=== PATIENT | male | born 1965 | race American Indian/Alaskan Native ===

== ENCOUNTER 2017-03-21 11:01 | Outpatient (CLI) | payer BC ==
[2017-03-21 11:25] LABS: BASOPHILS % (AUTO) 0.8 %; EOSINOPHILS % (AUTO) 0.7 %; HCT - HEMATOCRIT 60.1 % (42.0-52.0); HGB - HEMOGLOBIN 20.2 g/dL (14.0-18.0); LYMPHOCYTES % (AUTO) 16.8 %; MEAN CORPUSCULAR HEMOGLOBIN 30.3 pg (27.0-31.0); MEAN CORPUSCULAR HGB CONC 33.5 g/dL (32.0-36.0); MEAN CORPUSCULAR VOLUME 90.4 fL (80.0-94.0); MEAN PLATELET VOLUME 8.6 fL (7.4-11.4); MONOCYTES # (AUTO) 0.5 10^3/uL (0.0-1.0); MONOCYTES % (AUTO) 8.2 %; NEUTROPHILS # (AUTO) 4.4 10^3/uL (1.5-6.6); NEUTROPHILS % (AUTO) 73.5 %; NUCLEATED RED BLOOD CELLS AUTO 0.3 /100WBC; RED BLOOD COUNT 6.65 10^6/uL (4.70-6.10); RED CELL DISTRIBUTION WIDTH 14.5 % (12.0-15.0); UNCORRECTED WHITE BLOOD COUNT 6.1 x10^3/uL; WHITE BLOOD COUNT 6.1 x10^3/uL (4.8-10.8)
[2017-03-21 11:48] LABS: ALBUMIN/GLOBULIN RATIO 1.4 (1.0-2.2); BILIRUBIN,TOTAL 0.7 mg/dL (0.2-1.0); CALCIUM 9.1 mg/dL (8.5-10.3); CREATININE 1.1 mg/dL (0.6-1.2); POTASSIUM 4.7 mmol/L (3.5-5.0); TOTAL PROTEIN 7.9 g/dL (6.7-8.2)
== END 2017-03-21 11:02 | disposition home or self-care (01) ==
LOC: LAB 11:01
PROVIDERS: ATTEND Obstetrics & Gynecology
DX: Z01.818 Encounter for other preprocedural examination (principal); F64.1 Dual role transvestism
CPT/HCPCS: 36415; 80053; 85025; 86850; 86900; 86901

== ENCOUNTER 2017-03-23 06:15 | Day surgery (SDC) | payer BC ==
--- NOTE | 2017-03-21 13:20 | PREOP HISTORY & PHYSICAL ---
DATE OF ADMISSION/SURGERY: 03/23/2017 IDENTIFICATION: This is a 51-year-old G0. HISTORY OF PRESENT ILLNESS: The patient presents today for his scheduled preoperative visit. The andra ent for a long time has desired removal of his uterus, ovaries, and fallopian tubes. The patient has had bilateral mastectomies and is currently identifying and living as a male. We had anticipated him to have surgery when I initially saw him in 2013, but unfortunately due to polycythemia and an elevat ed creatinine, there was a delay in getting these problems addressed. More recently he has needed to require shoulder surgery, which has postponed his surgery. Finally, now he is able to remove the fema le genital organs. In the past, he has noted that he has had pelvic pain and dysmenorrhea. He has bee n seen in the [facility]'s hematologic/oncology clinic by Daniel Burks MD, PhD, and the polycythe jerry is from his testosterone. The patient has had some therapeutic phlebotomies, which has reduced hi s HandH. The patient also saw Dr. Shannan Howard, urology, and has had cystoscopy. He is cleared from Dr. Howard's point of view with respect to urology. The patient has been seeing Last Bush DO at [facility] in [place] with respect to his hormone therapy. Apparently Dr. Patty dela cruz has decided to move to [place] and now the patient is being taken care of by Dr. Charlie hensley, DIANA, also at [facility]. In any event, the patient is excited to have surgery done so he can later proceed to sexual reassignm ent surgery. The patient is doing well and he denies any nausea, vomiting, fevers, chills, abdominal pain. The patient presents today with his mother, Mendy. PAST MEDICAL HISTORY 1. Migraine headaches. 2. Pelvic pain. 3. Hypertension. 4. Hypogonadism. 5. Dermatitis. PAST SURGICAL HISTORY 1. In 2011, bilateral mastectomy in [place], [place]. 2. In 2006, right rotator cuff repair. 3. In 2004, [facility] in [place], [place]. ALLERGIES: NO KNOWN DRUG ALLERGIES. MEDICATIONS 1. Testosterone 0.1 mg IM q.10 days. This is being currently held in preparation for surgery. 2. Lisinopril 20 mg 1 tab p.o. daily. 3. Toprol-XL 25 mg. 4. Mobic 7.5 mg 1 tab p.o. daily. SOCIAL HISTORY: The patient is a former smoker, but currently does not smoke. He also denies any alco hol or illicit drug use. 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 His mom is Mendy, and he is very close to his mom. Mom currently lives in [facility], apparently [place]. He is currently moving in with his mom for his post operative recovery. His sexual reassignment was started in 2009. PAST OBSTETRICAL HISTORY: Nulligravida. PAST GYNECOLOGICAL HISTORY: He denies any abnormal Pap smears or sexually transmitted diseases. He feliz s not had menses for the last 10 years. FAMILY HISTORY 1. Diabetes. 2. Paternal grandmother had uterine carcinoma. REVIEW OF SYSTEMS: Negative, unless otherwise stated. OBJECTIVE VITAL SIGNS: Height is 67 inches, weight is 129 pounds, BMI is 30.1. Blood pressure 132/82. GENERAL: The patient is a well-developed, well-nourished male who appears to be his s tated age. He is not well versed in medical knowledge. HEENT: He does have a scraggly baldwin, otherwise within normal limits. CARDIOVASCULAR: Rate is regular. No murmurs or rubs. PULMONARY: Lungs are clear to auscultation bilaterally. ABDOMEN: Soft, nontender. No peritoneal signs. STUDIES 1. 09/05/2014, at [facility], show uterus that is anteverted measuring 8.2 x 5.3 x 4.0 cm. There is a right lateral subserosal and posterior body leiomyomata measuring 1.3 and 1.1 cm, respectively. Normal ovaries. No free fluid. 2. 09/19/2015, labs show white count of 5.1, HandH of 14.7 and 45.3, platelets 267. 3. 01/08/2016, negative Pap smear with negative high risk HPV screening. ASSESSMENT 1. A 51-year-old G0. 2. Transgender and desires removal of female reproductive organs. 3. Resolved polycythemia secondary to testosterone supplementation. 4. Cleared by Gui Valenzuela MD, urology at [facility], for hematuria and elevated creatinine. PLAN 1. We will proceed to a scheduled total laparoscopic hysterectomy, bilateral salpingo-oophorectomy, a nd cystoscopy on 03/23/2017. 2. Discussed with him the risks, benefits, alternatives, indications, and expectations of surgery. Liban hamilton of his questions were answered to his satisfaction. Consent forms have been signed. 3. He is to get preop labs today for CBC, type and screen, as well as a comprehensive panel. 4. He is to take Tylenol 1 g prior to coming to the hospital, and he will receive Celebrex 200 mg in the preoperative holding area. 5. Anticipate him going home later the day after surgery. 6. Prescriptions for him have been given to him for postoperative care including oxycodone, ibuprofen , Colace and Tylenol. 7. He will return to me in 2 weeks for routine postop visit. JOB #: [id number] EXT JOB #:[id number]
[2017-03-23] MEDS ORDERED: CELECOXIB 100 MG CAPSULE PO ONE (06:32)
[2017-03-23] MEDS ORDERED: ENOXAPARIN 40 MG/0.4 ML SYRINGE SUBQ ONE (06:32)
[2017-03-23] MEDS ORDERED: ceFAZolin 2 GM/50 ML 50 ML IV ONE (06:32)
[2017-03-23] MEDS ORDERED: LACTATED RINGERS 1,000 ML IV ONE (06:34)
[2017-03-23] MEDS ORDERED: MIDAZOLAM 2 MG/2 ML VIAL ONE (08:02)
[2017-03-23] MEDS ORDERED: BUPIVACAINE 0.25%-EPI 1:200000 PF 30 ML VIAL SUBQ ONE ×3 (10:39→13:14)
[2017-03-23] MEDS ORDERED: METOCLOPRAMIDE 10 MG/2 ML VIAL IVP ONE (10:56)
[2017-03-23] MEDS ORDERED: PROPOFOL 200 MG/20 ML VIAL IVP ONE (10:56)
[2017-03-23] MEDS ORDERED: ROCURONIUM 50 MG/5 ML VIAL IVP ONE (10:56)
[2017-03-23] MEDS ORDERED: DEXAMETHASONE 4 MG/ML VIAL IVP ONE (10:56)
[2017-03-23] MEDS ORDERED: NEOSTIGMINE 1 MG/1 ML 10 ML MDV IVP ONE (10:56)
[2017-03-23] MEDS ORDERED: ePHEDrine 50 MG/ML AMP IVP ONE (10:56)
[2017-03-23] MEDS ORDERED: PHENYLEPHRINE 50 MG/5 ML VIAL IV ONE (10:56)
[2017-03-23] MEDS ORDERED: ONDANSETRON 4 MG/2 ML VIAL IVP ONE (10:56)
[2017-03-23] MEDS ORDERED: ACETAMINOPHEN 1,000 MG/100 ML VIAL IV ONE (10:56)
[2017-03-23] MEDS ORDERED: HYDROmorphone 1 MG/ML SYRINGE IVP ONE (10:56)
[2017-03-23] MEDS ORDERED: GLYCOPYRROLATE 1 MG/5 ML VIAL IVP ONE (10:56)
[2017-03-23] MEDS ORDERED: KETOROLAC 30 MG/ML VIAL IVP ONE (10:56)
[2017-03-23] MEDS ORDERED: MIDAZOLAM 2 MG/2 ML VIAL IVP ONE (10:56)
[2017-03-23] MEDS ORDERED: LIDOCAINE-MPF 2% 5 ML VIAL IM ONE (10:56)
--- NOTE | 2017-03-23 13:39 | OPERATIVE REPORT ---
Operative Report - General Procedure Date: 03/23/17 - Other Other Information/Narrative: Date of Operation: 03/23/2017 Surgeon: Anika Elaine DO FACOG Real Time Operator: Jarad Bob MD FACOG Anesthesiologist: Nancie Lopez MD Anesthesia: GET Pre-op Dx: 1. 51 yo G0 2. Transgender 3. Desired hysterectomy and bilateral salpingo-oophorectomy Post-op: 1. 51 yo G0 2. Transgender 3. Desired hysterectomy and bilateral salpingo-oophorectomy Procedures: 1. Total laparoscopic hysterectomy 2. Bilateral salpingo-oophorectomy 3. Cystoscopy Findings: 1. Leiomyomatamous uterus 2. Normal ovaries and fallopian tubes 3. Normal bladder and ureteral jets were seen at the conclusion of the case Specimens: Uterus, fallopian tubes and ovaries, en bloc Drains: None EBL: 300 mL Complications: None Dictation #: [id number]
[2017-03-23] MEDS ORDERED: ONDANSETRON 4 MG/2 ML VIAL ONE (13:44)
[2017-03-23] MEDS: fentaNYL 100 MCG/2 ML VIAL ONE ×3 (13:56→14:02)
[2017-03-23] MEDS ORDERED: oxyCODONE 5 MG TABLET ONE (14:46)
[2017-03-23 15:40] VITALS: BP 139/68
--- NOTE | 2017-03-24 06:50 | OPERATIVE REPORT ---
DATE OF SURGERY: 03/23/2017 00:00:00 SURGEON: Anika Elaine DO. IRON MELTER: Jarad Bob MD. ANESTHESIOLOGIST: Nancie Lopez MD. ANESTHESIA: General endotracheal tube. PREOPERATIVE DIAGNOSES 1. A 51-year-old G0. 2. Transgender. 3. Desires hysterectomy and bilateral salpingo-oophorectomy. POSTOPERATIVE DIAGNOSES 1. A 51-year-old G0. 2. Transgender. 3. Desires hysterectomy and bilateral salpingo-oophorectomy. PROCEDURES 1. Total laparoscopic hysterectomy. 2. Bilateral salpingo-oophorectomy. 3. Cystoscopy. FINDINGS 1. Leiomyomatosis uterus. 2. Normal ovaries and fallopian tubes. 3. Normal bladder and ureteral jets seen at the conclusion of the case. SPECIMENS: Uterus, fallopian tubes, and ovaries en bloc. DRAINS: None. ESTIMATED BLOOD LOSS: 300 mL. COMPLICATIONS: None. BRIEF HISTORY: This is a patient of [facility] with whom I have been seeing for quite a while. There have been some difficulties for the patient in order to get consultations performed, as well as needing to have orthopedic surgery. The patient has had a history of menorrhagia, but the patient now has went through menopause. The patient has undergone transformation from female to male and has had a bilateral mastectomy and is on testosterone therapy. The patient would like to have sexual reassignment surgery in the future after hysterectomy has been performed. I discussed with the patient the risks, benefits, terms, indications, expectations of a total laparoscopic hysterectomy, bilateral salpingo-oophorectomy, and cystoscopy. Included in the risks were risk of infection, hemorrhage, and damage to surrounding organs, which may include, but is not limited to inadvertant laceration, cauterization or ligation of adjacent intestines, ureters, and bladder. Furthermore, the patient's workup showed a significant polycythemia that had been worked up Heme/Onc and effectively treated with weekly phlebotomy. The patient has not had any phlebotomy in the recent past. He has a hemoglobin of 20.2 and an hematocrit of about 60. I told the patient that with this polycythemia, this is a hypercoagulable condition, in which he is at increased risk of having blood clots. Significance of this is stroke, pulmonary embolism, and myocardial infarction. The patient still wanted to proceed with this surgery and I did give him Lovenox 2 hours prior to surgery in order to reduce the risk. I also spoke to Dr. Nancie Lopez about the patient's case and she decided to increase the patient's fluids in order to help decrease the patient' s hemoglobin. After all of the patient's questions were answered to his satisfaction, he verbalized his desire to proceed with surgery. Consent forms have been signed. OPERATION IN DETAIL: The patient was identified, consented, taken to the operating room where IV access was already in place. The patient did arrive 2 hours earlier and received Lovenox 40 mg subcu x1 at 6:51 this morning. We waited at least 2 hours before starting surgery. Sequential compression devices were placed on the patient's lower extremities and turned on. The patient was then given satisfactory general endotracheal anesthesia per Dr. Lopez. The patient was then prepped and draped in the normal sterile fashion in the lithotomy position using the yellow-fin stirrups. A Yanez catheter was placed in his bladder. Ancef 2 grams were given for postoperative prophylaxis. A timeout was performed, which correctly identified the patient, site of the procedure, and the procedures themselves. A medium V-care uterine manipulator and colpotimizer were placed on the cervix. Three laparoscopic port sites, all 5 mm in length, were first identified. They were in the subumbilical fold, right lower quadrant, and left lower quadrant. The lower quadrant sites were approximately 2 fingerbreadths medial and then superior to the respected anterior and superior iliac fold. All sites were injected with 0.25% Marcaine with epinephrine, approximately 5 mL each. A 0 degree laparoscopic port was then placed in the abdomen with the help of the Visi-Port trocar. There was no trauma to intraabdominal organs. Next, 2 other laparoscopic port sites were placed in the abdomen under direct visualization of the camera. The camera was changed to a 30 degree. CO2 gas was satisfactorily insufflated and inspection of the pelvis and abdomen was performed. It revealed slightly enlarged uterus consistent with parts of leiomyomata. The ovaries and fallopian tubes were both within normal limits. The appendix was seen and within normal limits. The liver, however, appeared to be enlarged more so than normal. It did have a beefy red edematous appearance to it. It was hemostatically stable and no masses were seen. I would guess that the liver was hypertrophied secondary to chronic testosterone use. There were some adhesions on the left adnexa and the sidewall. A small incision was made in the broad ligament and the left adnexa was freed. The left adnexa was first clamped, cauterized, and incised using LigaSure. This incision was carried inferiorly in the left aspect of the round ligament and next the round ligament. This incision was then carried to the anterior leaf of the broad ligament inferiorly and then medially in order to create a bladder flap. The left uterine artery was identified, clamped, and cauterized. The incision was held off until all major vessel contributions to the uterus had been stopped. The bladder flap was then further developed using dull dissection, as well as cautery. Attention was then turned towards the right aspect of the uterus. In a similar fashion, the right aspect of the uterus was then identified. The right adnexa was then clamped, cauterized, and excised from the right aspect of the pelvis including the infundibulum pelvic ligament and the fallopian tube. The round ligament was then clamped, cauterized, and incised using LigaSure. In a similar fashion, the broad ligament was then incised laterally. An incision was made in the anterior leaf in order to further develop the bladder flap that had already been started on the left aspect. The right uterine artery was then identified and then clamped, cauterized, and incised. The bladder flap was again further dissected out bluntly and with electrocautery. Some bleeding was noted in the left aspect of the uterus. A fourth 5 mm laparoscopic port site was placed at Mejia's point to help with visualization. Hemostatis was achieved after the left uterine artery was fully cauterized. The V-Care uterine manipulator and colpotomizer was pushed superiorly and we could palpate the superior cup laparoscopically. An incision was made in the vagina at the location of the cervix and vagina. The cup was then visualized and then with a harmonic scalpel, a circumferential incision was made on top of the cup. The cervix was then liberated from the pelvis. The uterus, fallopian tubes, and ovaries were then removed en bloc from the pelvis. The vaginal cuff was then closed with a running stitch of V-Loc 2-0 suture. Hemostasis was noted. Some bleeding was noted on the right anterior portion of the peritoneum. Electrocautery was used in order to obtain hemostasis. Hemostasis was again noted. Cystoscopy was then performed. Using a 30 degree camera and cystoscopy set-up, LR was used to distend the bladder. Visualization of the bladder revealed that the bladder was intact and there were no areas of suture or active bleeding. Both ureteral orifices were identified and ureteral jets were seen from both orifices. At this point in time, this procedure had been completed. The cystoscopy instruments were then removed out of the bladder and a Yanez catheter was then used to drain the bladder. The Yanez was removed just prior to moving the patient to recovery. The 4 laparoscopic port sites were then removed and were closed in a subcuticular fashion. Dermabond was placed on top of all 4 port sites. All sponge, lap and needle counts were correct x 2 as per nurse report. The patient tolerated the procedure well and was taken back to the recovery room in stable condition. The patient will be discharged to home later today after postoperative criteria are met. In addition, the patient will be given instructions to use Lovenox 40 mg subcu x1 daily for the next days given his elevated hemoglobin and hematocrit. I anticipate seeing the patient in 2 weeks for routine postop followup. JOB #: [id number] EXT JOB #:[id number] BROWN
== END 2017-03-23 06:16 | disposition home or self-care (01) ==
LOC: SDS 06:15
PROVIDERS: ATTEND Obstetrics & Gynecology
PROC: 0UTC4ZZ Resection of Cervix, Percutaneous Endoscopic Approach (ICD-10-PCS; 2017-03-23)
PROC: 0UT24ZZ Resection of Bilateral Ovaries, Percutaneous Endoscopic Approach (ICD-10-PCS; 2017-03-23)
PROC: 0UT74ZZ Resection of Bilateral Fallopian Tubes, Percutaneous Endoscopic Approach (ICD-10-PCS; 2017-03-23)
PROC: 0TJB8ZZ Inspection of Bladder, Via Natural or Artificial Opening Endoscopic (ICD-10-PCS; 2017-03-23)
PROC: 0UT94ZZ Resection of Uterus, Percutaneous Endoscopic Approach (ICD-10-PCS; principal; 2017-03-23 09:30)
DX: F64.1 Dual role transvestism (principal); D25.9 Leiomyoma of uterus, unspecified; N73.6 Female pelvic peritoneal adhesions (postinfective); D75.1 Secondary polycythemia; I10 Essential (primary) hypertension; Z87.891 Personal history of nicotine dependence; Z83.3 Family history of diabetes mellitus; Z80.49 Family history of malignant neoplasm of other genital organs; Z79.82 Long term (current) use of aspirin
CPT/HCPCS: 52000; 58571; A9270; J0131; J0690; J1170; J1650; J7120; 88307

== ENCOUNTER 2017-04-06 11:11 | Emergency (ER) | payer BC ==
[2017-04-06 12:21] LABS: BASOPHILS # (AUTO) 0.1 10^3/uL (0.0-0.1); BASOPHILS % (AUTO) 0.6 %; EOSINOPHILS # (AUTO) 0.1 10^3/uL (0.0-0.7); EOSINOPHILS % (AUTO) 0.5 %; HCT - HEMATOCRIT 39.6 % (42.0-52.0); LYMPHOCYTES # (AUTO) 1.5 10^3/uL (1.5-3.5); LYMPHOCYTES % (AUTO) 10.1 %; MEAN CORPUSCULAR HGB CONC 32.8 g/dL (32.0-36.0); MEAN CORPUSCULAR VOLUME 91.3 fL (80.0-94.0); MEAN PLATELET VOLUME 7.5 fL (7.4-11.4); MONOCYTES # (AUTO) 0.9 10^3/uL (0.0-1.0); MONOCYTES % (AUTO) 6.3 %; NEUTROPHILS # (AUTO) 12.1 10^3/uL (1.5-6.6); NEUTROPHILS % (AUTO) 82.5 %; NUCLEATED RED BLOOD CELLS AUTO 0.1 /100WBC; RED BLOOD COUNT 4.34 10^6/uL (4.70-6.10); UNCORRECTED WHITE BLOOD COUNT 14.6 x10^3/uL; WHITE BLOOD COUNT 14.6 x10^3/uL (4.8-10.8)
--- NOTE | 2017-04-06 12:25 | ED Physician Documentation ---
History of Present Illness - Stated complaint Stated Complaint: WEIGHT LOSS/INCREASED BP - Chief complaint Chief Complaint: Abd Pain - Additonal information Additional information: hx from pt and EMR 51 transgender F->M s/p hyst 03/24 03/26 returned to OR emergently for hemoperitoneum and had a perforated colon and now has a colostomy was dced 04/01 was OK 04/02 and 04/03 04/04 developed nausea sweats poor PO intake 04/05 worse and had NV, still having liquid output into colostomy bag, some SOA jenna with exertion, discomfort with urination today had blood work ordered by surgeon Dr Patten and it was reportedly abnormal and pt states he was told to come to the ER and have Dr Patten paged to come see him when he arrived Review of Systems Constitutional: reports: Chills, Sweats Throat: denies: Sore throat Cardiac: denies: Chest pain / pressure Respiratory: reports: Dyspnea. denies: Cough GI: reports: Abdominal Pain (improving), Nausea, Vomiting. denies: Diarrhea : reports: Dysuria Endocrine: denies: Easy bruising / bleeding Immunocompromised: denies: Immunocompromised PD PAST MEDICAL HISTORY - Past Medical History Cardiovascular: Hypertension, Arrhythmia Respiratory: None Endocrine/Autoimmune: None GI: Other : None HEENT: Chronic vision loss, Glaucoma Psych: None Musculoskeletal: Other Derm: Other - Past Surgical History Past Surgical History: Yes General: Bowel surgery, Colonoscopy, Other Ortho: Rotator cuff repair, Other /RAG SHREDDER: Hysterectomy, Oophrectomy, Mastectomy - Present Medications Home Medications: Ambulatory Orders Medication Instructions Recorded Confirmed Aspirin [Aspir 81] 81 mg PO DAILY 07/28/15 04/06/17 Latanoprost 1 drops EACHEYE DAILY 03/29/17 04/06/17 Latanoprost 0.005% Ophth Drops 1 drops LEFTEYE QPM bottle 04/01/17 04/06/17 [Xalatan Ophth Drops] oxyCODONE/ACET 5/325 [Percocet 5 1 tab PO Q3HR PRN 04/04/17 04/06/17 mg/325 mg] Amox/Clav 875/125 [Augmentin] 1 each PO Q12H #13 tablet 04/06/17 - Allergies Allergies/Adverse Reactions: Allergies Allergy/AdvReac Type Severity Reaction Status Date / Time No Known Drug Allergies Allergy Verified 04/01/15 16:13 - Social History Does the pt smoke?: Yes Smoking Status: Former smoker Does the pt drink ETOH?: No Does the pt have substance abuse?: No - Immunizations Immunizations are current?: Yes - POLST Patient has POLST: No PD ED PE NORMAL - Vitals Vital signs reviewed: Yes - Neck Neck: Supple, no meningeal sign - Cardiac Cardiac: RRR - Respiratory Respiratory: No respiratory distress, Clear bilaterally - Abdomen Abdomen: Other (colostomy bag with clear orange liquid no solid stool, midline lower abd insison stapled but draining seroud fluid and with slight surrounding erythema, bruising to left side of abd, mild TTP but no rebound or guaridng) - Back Back: Other (no ecchymosis) - Extremities Extremities: No deformity, No edema, No calf tenderness / cord - Neuro Neuro: Alert and oriented X 3 Results - Vitals Vitals: Vital Signs - 24 hr 04/06/17 11:18 Temperature 36.7 C Heart Rate 85 Respiratory 16 Rate Blood Pressure 114/70 O2 Saturation 96 Oxygen O2 Source Room air - Labs Labs: Laboratory Tests 04/06/17 04/06/17 04/06/17 11:58 11:58 13:13 WBC 14.6 H RBC 4.34 L Hgb 13.0 L Hct 39.6 L MCV 91.3 MCH 30.0 MCHC 32.8 RDW 16.0 H Plt Count 625 H MPV 7.5 Neut # 12.1 H Lymph # 1.5 [place] # 0.9 Eos # 0.1 Baso # 0.1 Absolute Nucleated RBC 0.01 Nucleated RBCs 0.1 Sodium 134 L Potassium 4.6 Chloride 101 Carbon Dioxide 24 Anion Gap 9.0 BUN 24 H Creatinine 1.0 Estimated GFR (MDRD) 78 L Glucose 114 H Lactic Acid Calcium 8.8 Total Bilirubin 0.7 AST 33 ALT 20 Alkaline Phosphatase 57 Total Protein 7.3 Albumin 3.4 Globulin 3.9 Albumin/Globulin Ratio 0.9 L Lipase 88 H Urine Color Urine Clarity Urine pH Ur Specific [place] Urine Protein Urine Glucose (UA) Urine Ketones Urine Occult Blood Urine Nitrite Urine Bilirubin Urine Urobilinogen Ur Leukocyte Esterase Ur Microscopic Review Urine Culture Comments Blood Type O POSITIVE Antibody Screen NEGATIVE 04/06/17 04/06/17 13:13 15:07 WBC RBC Hgb Hct MCV MCH MCHC RDW Plt Count MPV Neut # Lymph # [place] # Eos # Baso # Absolute Nucleated RBC Nucleated RBCs Sodium Potassium Chloride Carbon Dioxide Anion Gap BUN Creatinine Estimated GFR (MDRD) Glucose Lactic Acid 1.1 Calcium Total Bilirubin AST ALT Alkaline Phosphatase Total Protein Albumin Globulin Albumin/Globulin Ratio Lipase Urine Color YELLOW Urine Clarity CLEAR Urine pH 5.5 Ur Specific [place] 1.010 Urine Protein NEGATIVE Urine Glucose (UA) NEGATIVE Urine Ketones NEGATIVE Urine Occult Blood LARGE H Urine Nitrite NEGATIVE Urine Bilirubin NEGATIVE Urine Urobilinogen 0.2 (NORMAL) Ur Leukocyte Esterase NEGATIVE Ur Microscopic Review INDICATED Urine Culture Comments Not Reportable Blood Type Antibody Screen - Rads (name of study) CTPA Radiology: See rad report (no EP, chronic dec L lung volume) CT AP c IV con Radiology: See rad report (beneath and abd constantine focal subcut infammatory phlegmon with partial enhancing wall 3.6 X 2 X 4.2 cm possible early abscess ( Dr Patten open up), prior subcut emphysems now extends, no drainable abscess, prior intra-abdomina hemorrhage resolved, no pneumoperitoneum of FF, still extensive fat stranding can be post op inflamm changes) PD MEDICAL DECISION MAKING - ED course ED course: spoke to Dr Patten - pt was at wound clinic today and had low BP so Dr Patten req CBC and pt had elev WBC so she would like him to get a CT AP c IV con, pt is also quite SOA with any exterion s/p 2 abd surgeries and long inpt stay so will alos get CTPA pt seen by Dr Patten and she removed some constantine from the inflamed lower abd incision and rec pt can be dced on augmentin 875 BID X 7 days Departure - Departure Disposition: 01 Home, Self Care Clinical Impression: Post-operative infection Qualifiers: Encounter type: initial encounter Qualified Code(s): T81.4XXA - Infection following a procedure, initial encounter Condition: Good Follow-Up: NADER PATTEN MD [Provider Admit Priv/Credential] - Prescriptions: Amox/Clav 875/125 [Augmentin] 1 each PO Q12H #13 tablet Comments: There was no blood clot in your lungs or pneumonia The CT scan of your abdomen shows a collection of infection right under the constantine - Dr Patten has opened this up to drain and recommends you take augmentin twice a day for a week Recommend you take a probiotic or eat yogurt every day while on the antibiotics
[2017-04-06 12:36] LABS: ALBUMIN/GLOBULIN RATIO 0.9 (1.0-2.2); BILIRUBIN,TOTAL 0.7 mg/dL (0.2-1.0); CALCIUM 8.8 mg/dL (8.5-10.3); POTASSIUM 4.6 mmol/L (3.5-5.0); TOTAL PROTEIN 7.3 g/dL (6.7-8.2)
[2017-04-06] MEDS: SODIUM CHLORIDE 0.9% 1,000 ML IV ONE (12:40)
[2017-04-06] MEDS: IOPAMIDOL-300 100 ML VIAL IVP ONE (13:52)
[2017-04-06] MEDS: AMOX/CLAV 875 MG/125 MG TABLET PO STA (14:21)
[2017-04-06] MEDS ORDERED: AMOX/CLAV 875 MG/125 MG TABLET PO ONE (14:23)
--- NOTE | 2017-04-06 14:29 | CT Preliminary Report ---
Exam: CT Chest Angio (PE) IMPRESSION: 1. 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 2. Normal pulmonary CT angiogram. No pulmonary emboli. [facility] SITE ID: [id number]
--- NOTE | 2017-04-06 14:35 | CT Report ---
EXAM: CT ANGIOGRAM CHEST EXAM DATE: 04/06/2017 01:42 PM. CLINICAL HISTORY: Recent hysterectomy. Patient presents with abdominal pain and shortness of breath. COMPARISON: No prior chest CTA. CT abdomen and pelvis 03/25/2017. TECHNIQUE: Routine helical imaging was performed through the chest in the pulmonary arterial phase. I V Contrast: 100 cc Isovue-300. Reconstructions: Coronal 3-D MIP reconstructions. Sagittal and coronal . In accordance with CT protocol optimization, one or more of the following dose reduction techniques w ere utilized for this exam: automated exposure control, adjustment of mA and/or KV based on patient s ize, or use of iterative reconstructive technique. FINDINGS: Pulmonary Arteries: Diagnostic quality: Adequate through the segmental arteries. No evidence for acute or chronic pulmona ry emboli. RV/LV is within normal limits. There is no interventricular septal bowing. There is no reflux of cont rast material in the IVC. Lungs/Pleura: Persistent marked elevation left hemidiaphragm with small amount of atelectasis or scar ring left lung base. Right lung is clear. No effusion nor pneumothorax. Mediastinum: Normal. No cardiac enlargement or adenopathy. Thoracic Aorta: Unremarkable. Upper Abdomen: Unremarkable. Other: Small amount of postprocedural superficial air left upper quadrant abdominal wall. IMPRESSION: 1. 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 2. Normal pulmonary CT angiogram. No pulmonary emboli. [facility] Referring Provider Line: [phone] SITE ID: [id number]
--- NOTE | 2017-04-06 14:46 | CT Preliminary Report ---
Exam: CT Abdomen/Pelvis W/ IMPRESSION: 1. Beneath the anterior abdominal sutures in the left paramedian location, there is a focal subcutane ous inflammatory phlegmon with partial enhancing wall measuring about 3.6 x 2 cm in cross-section and 4.2 cm in length, concerning for possible early formation of abscess. 2. Previous subcutaneous emphysema in the left lateral abdominal wall now extends to the labia majora bilaterally, not associated with drainable abscess. 3. Previous intra-abdominal hemorrhage is no longer present. No intra-abdominal abnormal fluid collec tion. No pneumoperitoneum. 4. There is still quite extensive fat stranding in the mesentery and peritoneum, can be due to postsu rgical and postinflammatory changes. [facility] SITE ID: [id number]
--- NOTE | 2017-04-06 14:49 | CT Report ---
EXAM: CT ABDOMEN AND PELVIS WITH CONTRAST EXAM DATE: 04/06/2017 01:43 PM. CLINICAL HISTORY: Post op pain and elevated WBC. COMPARISONS: CT ABDOMEN AND PELVIS WITH CONTRAST 03/25/2017. TECHNIQUE: Routine helical CT imaging was performed through the abdomen and pelvis. IV contrast: 100 cc Isovue-300. Enteric contrast: No. Reconstructions: Coronal and sagittal. In accordance with CT protocol optimization, one or more of the following dose reduction techniques w ere utilized for this exam: automated exposure control, adjustment of mA and/or KV based on patient s ize, or use of iterative reconstructive technique. FINDINGS: Lung Bases: Elevated left diaphragm. No consolidation or pleural effusion. Liver: Normal. No masses. Gallbladder/Bile Ducts: Unremarkable. Spleen: Normal. Pancreas: Normal. Adrenal Glands: Normal. Kidneys: Normal. No masses or hydronephrosis. Peritoneal Cavity/Bowel: Previous intra-abdominal hemorrhage is no longer present. Interval right ent erostomy. Anastomotic constantine in the sigmoid colon. There is still quite extensive fat stranding in t he mesentery and peritoneum, can be due to postsurgical and postinflammatory changes. No intra-abdomi nal abnormal fluid collection. No pneumoperitoneum. Pelvic Organs: Normal. The bladder and visualized pelvic organs are within normal limits. Vasculature: No aneurysms or other significant abnormality. Bones: No significant abnormality. Other: Previous subcutaneous emphysema in the left abdominal wall now extends to the labia majora rowan aterally. Beneath the anterior abdominal sutures in the left paramedian location, there is a focal coleman bcutaneous inflammatory phlegmon with partial enhancing wall measuring about 3.6 x 2 cm in cross-sect ion and 4.2 cm in length, concerning for possible early formation of abscess. IMPRESSION: 1. Beneath the anterior abdominal sutures in the left paramedian location, there is a focal subcutane ous inflammatory phlegmon with partial enhancing wall measuring about 3.6 x 2 cm in cross-section and 4.2 cm in length, concerning for possible early formation of abscess. 2. Previous subcutaneous emphysema in the left lateral abdominal wall now extends to the labia majora bilaterally, not associated with drainable abscess. 3. Previous intra-abdominal hemorrhage is no longer present. No intra-abdominal abnormal fluid collec tion. No pneumoperitoneum. 4. There is still quite extensive fat stranding in the mesentery and peritoneum, can be due to postsu rgical and postinflammatory changes. [facility] Referring Provider Line: [phone] SITE ID: [id number]
[2017-04-06 15:11] LABS: BILIRUBIN,URINE NEGATIVE (NEGATIVE); PH,URINE 5.5 PH (5.0-7.5)
[2017-04-06 15:12] LABS: UA w/ MICROSCOPIC CHARGE YES
[2017-04-06 15:30] LABS: UR CULTURE IF IND NOT INDICATED; WBC,URINE 0-3 /HPF (0-3)
[2017-04-06 15:57] VITALS: BP 120/75
--- NOTE | 2017-04-06 16:00 | CONSULTATION NOTE ---
DATE OF CONSULTATION: 04/06/2017 00:00:00 REASON FOR CONSULTATION: Night sweats and leukocytosis. HISTORY OF PRESENT ILLNESS: This is a 51-year-old who underwent an exploratory laparotomy and sigmoidectomy approximately 10 days ago for perforated sigmoid colon. He was discharged to home last Tuesday and had been doing pretty well, but then started complaining of night sweats. He denies any fevers or shaking chills. He was seen in the [facility] for management of his abdominal midline incision as this incision was left slightly open after surgery for concern for possible infection given the complexity of his surgery. Upon evaluation by the wound care nurse his blood pressure was noted to be slightly low and due to his complaints of night sweats I was called to assess the patient. On my assessment his vital signs were normal, his blood pressure was normal, his ostomy was functioning, his wound appeared normal. I did ask for a CBC to be drawn to ensure that there was no ensuing infection. This was noted to be slightly elevated. For this reason he was sent to the emergency department for a CT scan of the abdomen and pelvis. This was performed which demonstrated no evidence of intra-abdominal fluid collections, however, a subcutaneous fluid collection was noted at the umbilicus. His past medical history is significant for hypertension, migraines, dermatitis. Past surgical history: Bilateral mastectomy, rotator cuff repair recently, laparoscopic hysterectomy with bilateral oophorectomy and subsequent sigmoidectomy for bowel perforation. HOME MEDICATIONS: 1. Testosterone 0.1 mg IM every 10 days. 2. Lisinopril 20 mg 1 tablet daily. 3. Toprol XL 25 mg daily. 4. Mobic 7.5 mg daily. 5. Motrin 800 mg q. 8. 6. Roxicet. SOCIAL HISTORY; The patient is a transgender. He currently is living with a friend of the family. PHYSICAL EXAM: VITAL SIGNS: Temperature is 36.7, blood pressure 114/70, heart rate 85, respiratory rate 16, O2 saturation 96% on room air. GENERAL: He is awake, alert, oriented x3 in no acute distress. He is of average build. CARDIOVASCULAR: Regular rate and rhythm. CHEST: Clear to auscultation bilaterally with no rhonchi or wheezing. ABDOMEN: Soft, nondistended, mildly tender to palpation in the left lower quadrant. No guarding and no rigidity. Incision appears to be healing well with no signs of drainage or surrounding erythema. Stoma is pink and functioning. EXTREMITIES: Extremities are nonedematous. LAB VALUES: White blood cell count 14.6, hemoglobin 13, hematocrit 39.6, sodium 134, potassium 4.6, chloride 101, bicarb 24, BUN 24, creatinine 1.0, lactate 1.1. CT scan of the abdomen and pelvis reveals a soft tissue fluid collection and no intra-abdominal abscess. ASSESSMENT: This is a 51-year-old male status post sigmoid resection for a perforated bowel with a subsequent wound infection. PLAN: Two of the constantine in the upper portion of the wound were completely open to allow complete drainage of this fluid. The fluid was noted to be serous and not purulent. The wound was packed with packing and the patient was instructed to remove the packing tomorrow. He can be discharged home with a prescription with Augmentin for 1 week. He will be following up in my office on Tuesday for wound assessment. JOB #: [id number] [facility] JOB #:[id number] BROWN
== END 2017-04-06 15:40 | disposition home or self-care (01) ==
LOC: ED 11:11
DX: T81.4XXA Infection following a procedure, initial encounter (principal); Z93.3 Colostomy status; I10 Essential (primary) hypertension; I49.9 Cardiac arrhythmia, unspecified; Z79.82 Long term (current) use of aspirin; Z87.891 Personal history of nicotine dependence
CPT/HCPCS: 36415; 71275; 74177; 80053; 81001; 83605; 83690; 85025; 86850; 86900; 86901; 87040; 99283; 99284; A9270; Q9967; 81003; 87086

== ENCOUNTER 2017-06-07 09:09 | Outpatient (CLI) | payer OTHER, BC ==
--- NOTE | 2017-06-07 15:19 | MRI Report ---
EXAM: RIGHT SHOULDER MRI WITHOUT CONTRAST EXAM DATE: 06/07/2017 10:32 AM. CLINICAL HISTORY: Rotator cuff syndrome of right shoulder. Right shoulder pain. COMPARISON: None. TECHNIQUE: Multiplanar, multisequence T1-weighted and fluid-sensitive sequences of the shoulder witho ut contrast. Other: None. FINDINGS: Acromioclavicular Region: The acromion is small suggestive of a previous acromioplasty. The distal en d of the clavicle has been excised. There are postoperative artifacts adjacent to the acromion and th e acromioclavicular joint. The coracoacromial and coracoclavicular ligaments are intact. No subacromi al/subdeltoid bursal fluid. Glenohumeral Region: The humeral head is slightly subluxed superiorly relative to the glenoid. No eff usion or loose bodies. Grade 2 chondromalacia at the glenohumeral joint. The glenohumeral ligaments a nd joint capsule are unremarkable. Bone Marrow: Metallic anchors and/or screws at the humeral head. No acute fracture. Small osteophytes at the inferior margin of the humeral head. Labrum: There is blunting at the free edge of the superior aspect of the labrum which may be degenera tive or postoperative in etiology. The remainder of the labrum is unremarkable. Musculature/Rotator Cuff: The supraspinatus tendon is mild to moderately thin, but intact. There is s upraspinatus tendinosis. The infraspinatus, teres minor, and subscapularis tendons are unremarkable. No edema or fatty atrophy. Biceps Tendon: Previous biceps tenodesis. Within the bicipital groove, the long head biceps tendon is unremarkable. Other: The subcutaneous tissues are unremarkable. IMPRESSION: 1. Previous distal clavicle excision, and biceps tenodesis. 2. Slight superior subluxation of the humeral head relative to the glenoid. Grade 2 chondromalacia at the glenohumeral joint. 3. Blunting at the free edge of the superior aspect of the labrum which may be degenerative or postop erative in etiology. 4. Mild to moderately thin supraspinatus tendon. Supraspinatus tendinosis. No rotator cuff tendon tea r. [facility] MUSCULOSKELETAL [facility]IOLOG[facility] SECTION Referring Provider Line: [phone] SITE ID: [id number]
== END 2017-06-07 09:10 | disposition home or self-care (01) ==
LOC: DI 09:09
PROVIDERS: ATTEND Orthopaedic Surgery
DX: S43.001A Unspecified subluxation of right shoulder joint, initial encounter (principal); M94.211 Chondromalacia, right shoulder

== ENCOUNTER 2017-06-09 13:41 | Outpatient (CLI) | payer BC ==
[2017-06-09 14:01] LABS: BASOPHILS # (AUTO) 0.1 10^3/uL (0.0-0.1); BASOPHILS % (AUTO) 1.3 %; EOSINOPHILS # (AUTO) 0.1 10^3/uL (0.0-0.7); EOSINOPHILS % (AUTO) 1.6 %; HCT - HEMATOCRIT 48.5 % (42.0-52.0); HGB - HEMOGLOBIN 16.4 g/dL (14.0-18.0); LYMPHOCYTES # (AUTO) 1.7 10^3/uL (1.5-3.5); LYMPHOCYTES % (AUTO) 23.3 %; MEAN CORPUSCULAR HEMOGLOBIN 29.9 pg (27.0-31.0); MEAN CORPUSCULAR HGB CONC 33.9 g/dL (32.0-36.0); MEAN CORPUSCULAR VOLUME 88.4 fL (80.0-94.0); MEAN PLATELET VOLUME 8.1 fL (7.4-11.4); MONOCYTES # (AUTO) 0.6 10^3/uL (0.0-1.0); MONOCYTES % (AUTO) 7.8 %; NEUTROPHILS # (AUTO) 4.8 10^3/uL (1.5-6.6); RED BLOOD COUNT 5.48 10^6/uL (4.70-6.10); RED CELL DISTRIBUTION WIDTH 14.1 % (12.0-15.0); UNCORRECTED WHITE BLOOD COUNT 7.3 x10^3/uL; WHITE BLOOD COUNT 7.3 x10^3/uL (4.8-10.8)
[2017-06-09 14:26] LABS: CALCIUM 9.2 mg/dL (8.5-10.3)
== END 2017-06-09 13:42 | disposition home or self-care (01) ==
LOC: LAB 13:41
PROVIDERS: ATTEND Surgery
DX: Z01.812 Encounter for preprocedural laboratory examination (principal); K43.5 Parastomal hernia without obstruction or gangrene
CPT/HCPCS: 36415; 80048; 85025

== ENCOUNTER 2017-06-13 05:50 | Inpatient (IN) | payer BC ==
[2017-06-13] MEDS ORDERED: ceFAZolin 2 GM/50 ML 2 GM/50 ML BAG IV ONE (06:35)
[2017-06-13] MEDS ORDERED: LACTATED RINGERS 1,000 ML IV ONE ×2 (06:36→11:40)
[2017-06-13] MEDS ORDERED: metroNIDAZOLE 500 MG/100 ML 500 MG/100 ML BAG ONE (06:36)
[2017-06-13] MEDS ORDERED: MIDAZOLAM 2 MG/2 ML VIAL ONE (07:29)
[2017-06-13] MEDS ORDERED: BUPIVACAINE 0.5% PF 30 ML VIAL SUBQ ONE ×2 (08:24)
[2017-06-13] MEDS ORDERED: KETOROLAC 30 MG/ML VIAL IVP ONE (09:00)
[2017-06-13] MEDS ORDERED: DEXAMETHASONE 4 MG/ML VIAL IVP ONE (09:00)
[2017-06-13] MEDS ORDERED: fentaNYL 100 MCG/2 ML VIAL IVP ONE (09:00)
[2017-06-13] MEDS ORDERED: metroNIDAZOLE 500 PREMIX IV ONE (09:00)
[2017-06-13] MEDS ORDERED: METOCLOPRAMIDE 10 MG/2 ML VIAL IVP ONE (09:00)
[2017-06-13] MEDS ORDERED: LIDOCAINE-MPF 2% 5 ML VIAL IM ONE (09:00)
[2017-06-13] MEDS ORDERED: PROPOFOL 200 MG/20 ML VIAL IVP ONE (09:00)
[2017-06-13] MEDS ORDERED: ONDANSETRON 4 MG/2 ML VIAL IVP ONE (09:00)
[2017-06-13] MEDS ORDERED: ceFAZolin 2 GM/50 ML BAG IV ONE (09:00)
[2017-06-13] MEDS ORDERED: SODIUM CHLORIDE FLUSH 0.9% 10 ML SYRINGE IVP PRN (10:41)
[2017-06-13] MEDS ORDERED: ONDANSETRON 4 MG/2 ML VIAL IVP PRN (10:41)
[2017-06-13] MEDS ORDERED: MORPHINE PCA 50 MG IV PRN (10:41)
--- NOTE | 2017-06-13 11:00 | OPERATIVE REPORT ---
DATE OF SURGERY: 06/13/2017 00:00:00 SURGEON: Lissy Patten MD. ANESTHESIA: General. PREOPERATIVE DIAGNOSIS: Diverting ileostomy, status post partial sigmoid resection. POSTOPERATIVE DIAGNOSIS: Diverting ileostomy, status post partial sigmoid resection. PROCEDURE PERFORMED: Reversal of ileostomy and repair of parastomal hernia. FINDINGS: After obtaining informed consent from the patient, he was brought into the operating room and positioned on the operating table in the supine position, taking note of pressure points. A Yanez catheter was inserted. The patient was intubated. He was administered 2 grams of Ancef and 500 of metronidazole. The ileostomy was then closed with interrupted 3-0 silk. He was then prepped and draped in the usual sterile fashion and a time-out was taken according to protocol. A circular incision around the ostomy site was created and deepened down through the subcutaneous tissue to the underlying small bowel. A parastomal hernia was encountered during dissection. The hernia sac was carefully circumferentially dissected down to the level of the fascia taking care not to injure the bowel or mesentery. There was quite a bit of adhesions in this location and this portion of the procedure took approximately 1 hour. I eventually was able to completely free the parastomal hernia from the anterior and posterior fascia. The small bowel was easily immobilized out of the wound. The sutures placed to close the ileostomy were removed. The adhesions on the small bowel mesentery were freed in order to allow complete mobility of the loop of small bowel. The skin around the ostomy edges was then excised, and the ostomy was then closed in a transverse fashion with 2 separate 3-0 running Vicryl sutures running from the midline to the corners of the incision. The incision was then inverted using 3-0 interrupted silk sutures. The loop of bowel was then palpated to ensure easy passage of liquid and air. There was no leak of any bowel contents upon palpation of the anastomosis. The small bowel was then reduced back into the abdominal cavity. The fascia was then closed with interrupted [id number] 0 Vicryl sutures. The subcutaneous tissue was copiously irrigated. This was closed with interrupted 2-0 Vicryl. Half-inch iodoform packing was then placed, and the skin was partially closed with 2-0 nylon interrupted sutures. A dry dressing was applied. The patient was then extubated and taken to the recovery room in stable condition. ESTIMATED BLOOD LOSS: 30 mL. FLUIDS RECEIVED: 1 liter of crystalloid. SPECIMEN: None COMPLICATIONS: None URINE OUTPUT: 60 mL. JOB #: [id number] EXT JOB #:[id number] MTD[facility]
[2017-06-13] MEDS ORDERED: PROMETHAZINE 25 MG/1 ML VIAL ONE (11:17)
[2017-06-13] MEDS ORDERED: SODIUM CHLORIDE FLUSH 0.9% 10 ML SYRINGE IVP ONE (11:19)
[2017-06-13] MEDS ORDERED: SODIUM CHLORIDE 0.9% 10 ML ONE (11:19)
[2017-06-13] MEDS ORDERED: ACETAMINOPHEN 1,000 MG/100 ML 100 ML IV ONE (11:51)
[2017-06-13] MEDS: LACTATED RINGERS 1,000 ML IV SCH (12:36)
[2017-06-13] MEDS: ACETAMINOPHEN 1,000 MG/100 ML 100 ML IV SCH ×3 (12:53→21:55)
[2017-06-13] MEDS: SODIUM CHLORIDE FLUSH 0.9% 10 ML SYRINGE IVP SCH ×2 (13:51→20:01)
[2017-06-13] MEDS ORDERED: LATANOPROST 0.005% OPHTH DROPS EACHEYE SCH (21:00)
[2017-06-14] MEDS: LACTATED RINGERS 1,000 ML IV SCH (00:02)
[2017-06-14] MEDS: ACETAMINOPHEN 1,000 MG/100 ML 100 ML IV SCH ×3 (05:11→16:19)
[2017-06-14] MEDS: SODIUM CHLORIDE FLUSH 0.9% 10 ML SYRINGE IVP SCH ×2 (05:56→13:28)
[2017-06-14 08:06] VITALS: BP 109/64
[2017-06-14] MEDS ORDERED: ENOXAPARIN 40 MG/0.4 ML SYRINGE SUBQ SCH (09:00)
[2017-06-14] MEDS ORDERED: LISINOPRIL 20 MG TABLET PO SCH (09:00)
[2017-06-14] MEDS: oxyCODONE 5 MG TABLET PO PRN ×3 (09:25→17:32)
--- NOTE | 2017-06-14 13:40 | Discharge Plan ---
Discharge Plan Disposition: 01 Home, Self Care Condition: Good Diet: Soft Shower Restrictions: Yes (no tub bathing 2 weeks) Driving Restrictions: Yes (not while on narcotics) Weight Bearing: Full Weight Instruction Topics: Diet Soft Dc Additional Instructions or Follow Up instructions: No tub bathing, swimming, sauna x 2 weeks. No strenuous activity or lifting > 10 lbs for 6 weeks. Shower daily, replace dressing with dry dressing daily until there is no longer drainage from incision. Continue soft diet. Take stool softeners 2-3 times daily - stop if you develop diarrhea. Nothing per rectum for 6 weeks post op. Call you surgeon if you develop fever, chills, significant amount of blood in stool or bloody stools for more than 2 consecutive bowel movements, increasing abdominal pain, redness around incision or yellow or foul smelling drainage from incision. nausea or vomiting. Wash your hands prior to touching your incision. No Smoking: If you smoke, Please STOP! Call for help. Follow-up with: NADER WALL MD [Provider Admit Priv/Credential] - 06/28/17 9:00 am
--- NOTE | 2017-06-15 08:55 | DISCHARGE SUMMARY ---
DATE OF ADMISSION: 06/13/2017 DATE OF DISCHARGE: 06/14/2017 REASON FOR ADMISSION: Elective ileostomy reversal with repair of parastomal hernia. HOSPITAL COURSE: This is a 51-year-old male who underwent reversal of his ileostomy on 06/13/2017 wit h repair of his parastomal hernia. The procedure was without any complications and he was discharged to the floor postoperatively on a clear liquid diet. He was passing gas on hospital day #1 and was am bulating well without assistance. His IV pain medication was discontinued and he was tolerating oral medication on postoperative day #1. He was advanced to a soft diet and tolerated this well. He was st able for discharge home on postoperative day 1. He was provided with extensive instructions on how to care for his wound postoperatively. He did have packing in place postoperatively, which was removed on postoperative day 1. He was instructed to change his dressing daily after he showers and to contin ue keeping the incision c covered until it was no longer draining anything. He was also instructed al ways to wash his hands prior to touching his incision. He was provided with a prescription for Percoc et and Colace upon discharge. He was additionally instructed to call my office should he develop any fevers, chills, purulent drainage from his incision, persistent or worsening abdominal pain, nausea, vomiting, blood in his stools or persistent constipation. The patient was provided with a followup ap pointment with myself on 06/28/2017. JOB #: [id number] EXT JOB #:[id number]
== END 2017-06-14 17:50 | disposition home or self-care (01) | DRG 331 ==
LOC: MS2 05:50
PROVIDERS: ADMIT Surgery; ATTEND Surgery
PROC: 0WQF0ZZ Repair Abdominal Wall, Open Approach (ICD-10-PCS; 2017-06-13)
PROC: 0DN80ZZ Release Small Intestine, Open Approach (ICD-10-PCS; 2017-06-13)
PROC: 0DBB0ZZ Excision of Ileum, Open Approach (ICD-10-PCS; principal; 2017-06-13 07:30)
DX: Z43.2 Encounter for attention to ileostomy (principal); K43.5 Parastomal hernia without obstruction or gangrene; K66.0 Peritoneal adhesions (postprocedural) (postinfection); Z79.82 Long term (current) use of aspirin

== ENCOUNTER 2017-06-16 13:41 | Inpatient (IN) | payer BC ==
[2017-06-16] MEDS ORDERED: SODIUM CHLORIDE 0.9% 1,000 ML IV ONE ×2 (14:07→14:21)
[2017-06-16] MEDS ORDERED: ONDANSETRON 4 MG/2 ML VIAL IVP STA (14:21)
[2017-06-16] MEDS ORDERED: HYDROmorphone 1 MG/ML SYRINGE IVP STA (14:21)
--- NOTE | 2017-06-16 14:25 | ED Physician Documentation ---
History of Present Illness - Stated complaint Stated Complaint: POST OP COMPLICATION - Chief complaint Chief Complaint: Abd Pain - History obtained from History obtained from: Patient, Family - History of Present Illness Timing: Yesterday Pain level max: 9 Pain level now: 8 Quality: "pain" Improved by: nothing Worsened by: movement, palpation - Additonal information Additional information: Patient is a 51-year-old male who is status post a colostomy reversal 3 days ago. States went to have a bowel movement, "nothing came out" and then began vomiting. Now having increased pain. Took his pain medication and nausea medication at home without relief. Denies any fevers at home although states did feel chilled this morning. Review of Systems Ten Systems: 10 systems reviewed and negative Constitutional: reports: Chills. denies: Fever Ears: denies: Ear pain Nose: denies: Rhinorrhea / runny nose, Congestion Throat: denies: Sore throat Cardiac: denies: Chest pain / pressure : denies: Dysuria Skin: denies: Rash Musculoskeletal: denies: Neck pain, Back pain Neurologic: denies: Headache PD PAST MEDICAL HISTORY - Past Medical History Cardiovascular: Hypertension, Arrhythmia Respiratory: None Endocrine/Autoimmune: None GI: Diverticulitis, Other : None HEENT: Chronic vision loss, Glaucoma Psych: None, Claustrophobia Musculoskeletal: Other Derm: Other - Past Surgical History Past Surgical History: Yes General: Bowel surgery, Colonoscopy, Other Ortho: Rotator cuff repair, Other /[employer]: Hysterectomy, Oophrectomy, Mastectomy - Present Medications Home Medications: Ambulatory Orders Medication Instructions Recorded Confirmed Aspirin [Aspir 81] 81 mg PO DAILY 07/28/15 06/16/17 Latanoprost 0.005% Ophth Drops 1 drops EACHEYE QPM 06/09/17 06/16/17 [Xalatan Ophth Drops] Lisinopril 20 mg PO DAILY 06/09/17 06/16/17 Timolol 0.5% Ophth Drops [Timoptic 1 drops OPTH BID 06/14/17 06/16/17 0.5% Ophth Drops] Docusate Sodium [Dss] 250 mg PO DAILY PRN 06/16/17 06/16/17 Ondansetron HCl [Zofran] 4 mg PO Q6H PRN 06/16/17 06/16/17 oxyCODONE [Roxicodone] 5 mg PO Q4-6H 06/16/17 06/16/17 - Allergies Allergies/Adverse Reactions: Allergies Allergy/AdvReac Type Severity Reaction Status Date / Time No Known Drug Allergies Allergy Verified 06/16/17 13:48 - Social History Does the pt smoke?: Yes Smoking Status: Former smoker Does the pt drink ETOH?: No Does the pt have substance abuse?: No - Immunizations Immunizations are current?: Yes - POLST Patient has POLST: No PD ED PE NORMAL - Vitals Vital signs reviewed: Yes - General General: Alert and oriented X 3, No acute distress, Well developed/nourished - HEENT HEENT: PERRL, Moist mucous membranes - Neck Neck: Supple, no meningeal sign - Cardiac Cardiac: RRR, Strong equal pulses - Respiratory Respiratory: No respiratory distress, Clear bilaterally - Abdomen Abdomen: Non distended, Other (TTP across the lower abdomen. No peritoneal signs. No signs of infection.) - Back Back: No CVA TTP - Derm Derm: Warm and dry, No rash - Extremities Extremities: No calf tenderness / cord - Neuro Neuro: Alert and oriented X 3 - Psych Psych: Normal mood, Normal affect Results - Vitals Vitals: Vital Signs - 24 hr 06/16/17 13:43 Temperature 37.1 C Heart Rate 97 Respiratory 16 Rate Blood Pressure 157/89 H O2 Saturation 96 Oxygen O2 Source Room air - Labs Labs: Laboratory Tests 06/16/17 06/16/17 14:30 14:30 WBC 13.8 H RBC 5.25 Hgb 15.5 Hct 46.0 MCV 87.5 MCH 29.4 MCHC 33.6 RDW 14.2 Plt Count 208 MPV 8.0 Neut # 12.1 H Lymph # 0.9 L Todd # 0.7 Eos # 0.0 Baso # 0.0 Absolute Nucleated RBC 0.01 Nucleated RBC % 0.1 Sodium 135 Potassium 3.5 Chloride 96 L Carbon Dioxide 27 Anion Gap 12.0 BUN 15 Creatinine 0.7 Estimated GFR (MDRD) 118 Glucose 122 H Calcium 8.8 Total Bilirubin 1.0 AST 36 ALT 22 Alkaline Phosphatase 61 Total Protein 7.7 Albumin 4.1 Globulin 3.6 Albumin/Globulin Ratio 1.1 Lipase 18 L - Rads (name of study) CT abd/pelvis Radiology: Prelim report reviewed, EMP read contemporaneously, See rad report ( Small amount of ascites. 2. Right lower quadrant ileostomy. No bowel obstruction. 3. Normal appendix. 4. Mature postoperative changes lower abdominal wall. ) PD MEDICAL DECISION MAKING - ED course Complexity details: reviewed old records, reviewed results, re-evaluated patient , considered differential, d/w patient, d/w diet consultant ED course: 1415 - Dr. Patten, hold imaging until after labs, if WBC elevated CT with contrast Patient is a 51-year-old gentleman 3 days status post colostomy reversal. Increasing abdominal pain and mild distention. No evidence of infection clinically. He continues to have pain and nausea and unable to tolerate significant p.o. Dr. Patten came and evaluated the patient and will place the patient in observation. Also given a dose of Relistor for the significant constipation he is having. This document was made in part using voice recognition software. While efforts are made to proofread this document, sound alike and grammatical errors may occur. Departure - Departure Disposition: ED Place in Observation Clinical Impression: Ileus, Postoperative pain Constipation Qualifiers: Constipation type: unspecified constipation type Qualified Code(s): K59.00 - Constipation, unspecified Vomiting Qualifiers: Vomiting type: unspecified Vomiting Intractability: non-intractable Nausea presence: with nausea Qualified Code(s): R11.2 - Nausea with vomiting, unspecified Condition: Stable Discharge Date/Time: 06/16/17 16:44
[2017-06-16] MEDS ORDERED: ONDANSETRON 4 MG/2 ML VIAL ONE (14:34)
[2017-06-16] MEDS ORDERED: HYDROmorphone 1 MG/ML SYRINGE ONE (14:34)
[2017-06-16] MEDS ORDERED: SODIUM CHLORIDE FLUSH 0.9% 10 ML SYRINGE IVP ONE ×2 (14:35→15:02)
[2017-06-16 14:36] LABS: BASOPHILS % (AUTO) 0.3 %; EOSINOPHILS % (AUTO) 0.1 %; HGB - HEMOGLOBIN 15.5 g/dL (14.0-18.0); LYMPHOCYTES # (AUTO) 0.9 10^3/uL (1.5-3.5); LYMPHOCYTES % (AUTO) 6.6 %; MEAN CORPUSCULAR HEMOGLOBIN 29.4 pg (27.0-31.0); MEAN CORPUSCULAR HGB CONC 33.6 g/dL (32.0-36.0); MEAN CORPUSCULAR VOLUME 87.5 fL (80.0-94.0); MONOCYTES # (AUTO) 0.7 10^3/uL (0.0-1.0); MONOCYTES % (AUTO) 5.4 %; NEUTROPHILS # (AUTO) 12.1 10^3/uL (1.5-6.6); NEUTROPHILS % (AUTO) 87.6 %; NUCLEATED RED BLOOD CELLS AUTO 0.1 /100WBC; RED BLOOD COUNT 5.25 10^6/uL (4.70-6.10); RED CELL DISTRIBUTION WIDTH 14.2 % (12.0-15.0); UNCORRECTED WHITE BLOOD COUNT 13.8 x10^3/uL; WHITE BLOOD COUNT 13.8 x10^3/uL (4.8-10.8)
[2017-06-16 14:53] LABS: ALBUMIN/GLOBULIN RATIO 1.1 (1.0-2.2); CALCIUM 8.8 mg/dL (8.5-10.3); CREATININE 0.7 mg/dL (0.6-1.2); POTASSIUM 3.5 mmol/L (3.5-5.0); TOTAL PROTEIN 7.7 g/dL (6.7-8.2)
[2017-06-16] MEDS ORDERED: PROMETHAZINE INJ 25 MG in SODIUM CHLORIDE 0.9% 50 ML IV STA (14:53)
[2017-06-16] MEDS ORDERED: PROMETHAZINE 25 MG/1 ML VIAL ONE (15:01)
[2017-06-16] MEDS ORDERED: IOPAMIDOL-300 100 ML VIAL ONE (15:24)
[2017-06-16] MEDS ORDERED: IOPAMIDOL-300 100 ML VIAL IVP ONE (15:54)
[2017-06-16] MEDS ORDERED: METHYLNALTREXONE 12 MG/0.6 ML VIAL SUBQ ONE (16:00)
--- NOTE | 2017-06-16 16:27 | CT Preliminary Report ---
Exam: CT ABDOMEN/PELVIS W/ IMPRESSION: 1. Small amount of ascites. 2. Right lower quadrant ileostomy. No bowel obstruction. 3. Normal appendix. 4. Mature postoperative changes lower abdominal wall. [facility] SITE ID: [id number]
--- NOTE | 2017-06-16 16:36 | CT Report ---
EXAM: CT ABDOMEN AND PELVIS EXAM DATE: 06/16/2017 03:55 PM. CLINICAL HISTORY: Hysterectomy several months ago. Patient presents with abdominal pain and vomiting . COMPARISONS: 04/06/2017. CTA chest 04/06/2017. TECHNIQUE: Routine helical CT imaging was performed through the abdomen and pelvis. IV contrast: 100 mL Isovue 300. Enteric contrast: No. Reconstructions: Coronal and sagittal. In accordance with CT protocol optimization, one or more of the following dose reduction techniques w ere utilized for this exam: automated exposure control, adjustment of mA and/or KV based on patient s ize, or use of iterative reconstructive technique. FINDINGS: Lung Bases: Chronic marked elevation left hemidiaphragm. Liver: Fatty infiltration. Gallbladder/Bile Ducts: Normal. Spleen: Normal. Pancreas: Normal. Adrenal Glands: Normal. Kidneys: Normal. No masses or hydronephrosis. Peritoneal Cavity/Bowel: Stable right lower quadrant ileostomy. Very small amount of free fluid. Mode rate amount of gas throughout the normal caliber colon. Small bowel is normal caliber. No free air nor adenopathy. Normal appendix. Interval maturation of the infraumbilical ventral surgical excision site. No recurrent nor residual f luid collections to suggest abscess. Pelvic Organs: Tiny amount of free fluid. No stones in the small caliber urinary bladder. Prostate is small. Vasculature: No aneurysms or other significant abnormality. Bones: Marked degenerative changes L4-L5 and L5-S1. Mature postoperative changes on the right at L5-S 1. Other: None. IMPRESSION: 1. Small amount of ascites. 2. Right lower quadrant ileostomy. No bowel obstruction. 3. Normal appendix. 4. Mature postoperative changes lower abdominal wall. [facility] Referring Provider Line: [phone] SITE ID: [id number]
--- NOTE | 2017-06-16 16:57 | HISTORY & PHYSICAL EXAMINATION ---
DATE OF ADMISSION: 06/16/2017 06/16/2017. REASON FOR ADMISSION: nausea, emesis, abdominal distention, dehydration HISTORY OF PRESENT ILLNESS: This is a 51-year-old male who underwent reversal of his ileostomy 3 days ago. He did very well postoperatively day 1 and was passing flatus. He was discharged home on a soft diet. Yesterday he began developing abdominal distention, nausea and a small amount of emesis which was mostly phlegm and not much fluid. This became progressively worse and he presented to the emergency department today. Upon evaluation in the emergency department, he was noted to have a distended abdomen. He was noted to be hemodynamically stable and was in a moderate amount of abdominal discomfort. Labs were performed which demonstrated a white blood cell count of 13.8. A CT scan of the abdomen was subsequently performed which is demonstrating a significant amount of air in the colon with a dilated ascending colon, air and fluid are noting to pass through the ileal anastomosis as well as the rectal anastomosis performed several months ago. There is trace fluid in the peritoneal cavity. The soft tissue at the site of the ostomy closure appears to have some fluid and air compatible with a possible early infection. Upon my evaluation of the patient, he is resting in bed with some moderate amount of discomfort. His abdomen is distended. PAST MEDICAL HISTORY: Significant for transgender surgery; he underwent a laparoscopic-assisted hysterectomy 3 months prior, which resulted in a rectal injury. This was repaired and a diverting ileostomy performed. PAST SURGICAL HISTORY: As stated. HOME MEDICATIONS: 1. Lisinopril 20 mg daily. 2. Aspirin 81 mg daily. ALLERGIES TO MEDICATIONS: NO KNOWN DRUG ALLERGIES. SOCIAL HISTORY: The patient currently is living with his mother. PHYSICAL EXAMINATION: VITAL SIGNS: Temperature 37.1, blood pressure 137/89, heart rate of 97, respiratory rate 16. O2 saturation is 96% on room air. GENERAL: Awake, alert, oriented x3, in mild to moderate distress. CARDIOVASCULAR: Regular rate and rhythm. CHEST: Clear to auscultation bilaterally. ABDOMEN: Softly distended. He does not have any point tenderness to palpation and no guarding. There is no rigidity or peritoneal signs. The skin surrounding the ostomy incision is without erythematous changes. One of the sutures was opened and the wound explored with some small amount of blood clot present; however, no purulent fluid was noted. EXTREMITIES: Well perfused and nonedematous. LABORATORY VALUES: White blood cell count 13.8, hemoglobin 15.5, hematocrit 46.0 , platelets 208. Sodium 135, potassium 3.5, chloride 96, bicarbonate 27, BUN 15 , creatinine 0.7, glucose 122. ASSESSMENT: This is a 51-year-old gentleman status post closure of ileostomy postop day 3 with persistent nausea, vomiting, dehydration and abdominal distention. No ileus apparent on CT but a dilated ascending colon is seen. PLAN: The patient will be admitted to the surgical service for observation. He will be placed on IV fluids for resuscitation and a bowel regimen. Additionally we will administer Relistor to attempt to achieve bowel function. He will also be placed on a bowel protocol. Once the patient is effectively passing gas and having bowel movements, his diet will be advanced and he should be able to be discharged home within the next 24 hours. JOB #: [id number] EXT JOB #:[id number]
[2017-06-16 17:37] LABS: BILIRUBIN,URINE NEGATIVE (NEGATIVE)
[2017-06-16 17:39] LABS: UA w/ MICROSCOPIC CHARGE YES
[2017-06-16 17:48] LABS: WBC,URINE 0-3 /HPF (0-3)
[2017-06-16 17:49] LABS: UR CULTURE IF IND NOT INDICATED
[2017-06-16] MEDS: HYDROcod/ACETAM 5/325 MG TABLET PO PRN (19:41)
[2017-06-16] MEDS: ONDANSETRON 4 MG/2 ML VIAL IVP PRN (19:46)
[2017-06-16] MEDS: FAMOTIDINE 20 MG/50 ML 50 ML IV SCH (21:40)
[2017-06-16] MEDS: METOCLOPRAMIDE 10 MG/2 ML VIAL IVP PRN (21:52)
[2017-06-16] MEDS: SODIUM CHLORIDE FLUSH 0.9% 10 ML SYRINGE IVP SCH (21:52)
[2017-06-16] MEDS: D5NS W/20 MEQ KCL 1,000 ML IV SCH (22:58)
[2017-06-17] MEDS: ONDANSETRON 4 MG/2 ML VIAL IVP PRN ×4 (01:47→20:16)
[2017-06-17] MEDS: HYDROcod/ACETAM 5/325 MG TABLET PO PRN ×3 (01:47→10:45)
[2017-06-17] MEDS: METOCLOPRAMIDE 10 MG/2 ML VIAL IVP PRN (05:12)
[2017-06-17] MEDS: SODIUM CHLORIDE FLUSH 0.9% 10 ML SYRINGE IVP SCH ×3 (06:08→20:16)
[2017-06-17] MEDS: FAMOTIDINE 20 MG/50 ML 50 ML IV SCH ×2 (08:03→21:28)
[2017-06-17] MEDS: POLYETHYLENE GLYCOL 3350 17 GM PACKET PO SCH (08:05)
[2017-06-17] MEDS: D5NS W/20 MEQ KCL 1,000 ML IV SCH ×3 (08:06→18:35)
[2017-06-17] MEDS ORDERED: METOCLOPRAMIDE 10 MG/2 ML VIAL IVP PRN (09:00)
[2017-06-17 09:12] LABS: BASOPHILS % (AUTO) 0.4 %; EOSINOPHILS % (AUTO) 0.3 %; HCT - HEMATOCRIT 41.6 % (42.0-52.0); LYMPHOCYTES # (AUTO) 1.1 10^3/uL (1.5-3.5); LYMPHOCYTES % (AUTO) 10.8 %; MEAN CORPUSCULAR HEMOGLOBIN 29.8 pg (27.0-31.0); MEAN CORPUSCULAR HGB CONC 33.7 g/dL (32.0-36.0); MEAN CORPUSCULAR VOLUME 88.5 fL (80.0-94.0); MEAN PLATELET VOLUME 7.8 fL (7.4-11.4); MONOCYTES % (AUTO) 9.8 %; NEUTROPHILS # (AUTO) 7.8 10^3/uL (1.5-6.6); NEUTROPHILS % (AUTO) 78.7 %; NUCLEATED RED BLOOD CELLS AUTO 0.1 /100WBC; RED CELL DISTRIBUTION WIDTH 14.2 % (12.0-15.0); UNCORRECTED WHITE BLOOD COUNT 9.9 x10^3/uL; WHITE BLOOD COUNT 9.9 x10^3/uL (4.8-10.8)
[2017-06-17] MEDS: METOCLOPRAMIDE 10 MG/2 ML VIAL IVP SCH ×4 (10:42→23:47)
--- NOTE | 2017-06-17 11:58 | PROVIDER PROGRESS NOTE ---
Subjective - Prog Note Date Prog Note Date: 06/17/17 - Subjective Pt reports feeling: Improved Subjective: Had a large BM yesterday and is feeling better but still has nausea. Objective - Vital Signs/Intake & Output Reviewed Vital Signs: Yes Vital Signs: Vital Signs x48h Temp Pulse Resp BP Pulse Ox 06/17/17 08:58 36.6 C 86 20 154/94 H 95 06/17/17 05:00 37.1 C 95 16 149/94 H 95 Intake & Output: Intake & Output 06/14/17 06/15/17 06/16/17 06/17/17 23:59 23:59 23:59 23:59 Intake Total 1100 1363.333 Output Total 550 Balance 1100 813.333 - Objective General Appearance: positive: No acute distress Respiratory: positive: No respiratory distress Cardiovascular: positive: Regular rate & rhythm Abdomen: positive: Other (sotly distended but improved, dressing CDI, non- tender to light palpation) Extremities: positive: No pedal edema Neurologic/Psychiatric: positive: Oriented x3 - Lab Results Fish Bones: 06/17/17 08:56 06/16/17 14:30 Other Labs: Lab Results x24hrs 06/17/17 06/16/17 Range/Units 08:56 17:20 WBC 9.9 (4.8-10.8) x10^3/uL RBC 4.70 (4.70-6.10) 10^6/uL Hgb 14.0 (14.0-18.0) g/dL Hct 41.6 L (42.0-52.0) % MCV 88.5 (80.0-94.0) fL MCH 29.8 (27.0-31.0) pg MCHC 33.7 (32.0-36.0) g/dL RDW 14.2 (12.0-15.0) % Plt Count 208 (130-450) 10^3/uL MPV 7.8 (7.4-11.4) fL Neut # 7.8 H (1.5-6.6) 10^3/uL Lymph # 1.1 L (1.5-3.5) 10^3/uL [place] # 1.0 (0.0-1.0) 10^3/uL Eos # 0.0 (0.0-0.7) 10^3/uL Baso # 0.0 (0.0-0.1) 10^3/uL Absolute Nucleated RBC 0.01 x10^3/uL Nucleated RBC % 0.1 /100WBC Urine Color YELLOW Urine Clarity CLEAR (CLEAR) Urine pH 6.0 (5.0-7.5) PH Ur Specific [place]as[place] 1.010 (1.002-1.030) Urine Protein NEGATIVE (NEGATIVE) mg/dL Urine Glucose (UA) NEGATIVE (NEGATIVE) mg/dL Urine Ketones NEGATIVE (NEGATIVE) mg/dL Urine Occult Blood SMALL H (NEGATIVE) Urine Nitrite NEGATIVE (NEGATIVE) Urine Bilirubin NEGATIVE (NEGATIVE) Urine Urobilinogen 0.2 (NORMAL) (NORMAL) E.U./dL Ur Leukocyte Esterase NEGATIVE (NEGATIVE) Urine RBC 0-5 (0-5) /HPF Urine WBC 0-3 (0-3) /HPF Ur Squamous Epith Cells NONE SEEN (<= Few) Urine Bacteria None Seen (None Seen) /HPF Ur Microscopic Review INDICATED Urine Culture Comments NOT INDICATED Assessment/Plan - Problem List (1) Constipation Impression: Had a BM but continues to feel nauseous. Will DC percocet and encourage patient to only take ibuprofen and tylenol PRN pain. Oxycodone ordered for severe pain only. Encourage ambulation. Educated patient not to drink any carbonated beverages. Will reassess in evening as to whether patient will be stable for DC home. Qualifiers: Constipation type: unspecified constipation type Qualified Code(s): K59.00 - Constipation, unspecified
[2017-06-17] MEDS: IBUPROFEN 600 MG TABLET PO SCH ×3 (12:33→23:48)
[2017-06-17] MEDS: ACETAMINOPHEN 325 MG TABLET PO PRN ×3 (15:59→23:48)
[2017-06-17] MEDS: SODIUM CHLORIDE FLUSH 0.9% 10 ML SYRINGE IVP PRN (17:29)
[2017-06-17] MEDS ORDERED: PROMETHAZINE INJ 25 MG in SODIUM CHLORIDE 0.9% 50 ML IV PRN (22:41)
[2017-06-18] MEDS: oxyCODONE 5 MG TABLET PO PRN ×2 (00:48→06:48)
[2017-06-18] MEDS: ACETAMINOPHEN 325 MG TABLET PO PRN (03:59)
[2017-06-18] MEDS ORDERED: PROMETHAZINE 25 MG/1 ML VIAL ONE (04:48)
[2017-06-18] MEDS: SODIUM CHLORIDE FLUSH 0.9% 10 ML SYRINGE IVP PRN ×5 (04:51→17:55)
[2017-06-18] MEDS: D5NS W/20 MEQ KCL 1,000 ML IV SCH ×3 (04:52→16:05)
[2017-06-18] MEDS: IBUPROFEN 600 MG TABLET PO SCH (06:48)
[2017-06-18] MEDS: METOCLOPRAMIDE 10 MG/2 ML VIAL IVP SCH ×3 (06:49→17:04)
[2017-06-18] MEDS: SODIUM CHLORIDE FLUSH 0.9% 10 ML SYRINGE IVP SCH ×2 (06:49→12:52)
[2017-06-18] MEDS: POLYETHYLENE GLYCOL 3350 17 GM PACKET PO SCH (09:57)
[2017-06-18] MEDS: FAMOTIDINE 20 MG/50 ML 50 ML IV SCH (10:00)
[2017-06-18] MEDS: ONDANSETRON 4 MG/2 ML VIAL IVP PRN ×2 (10:00→16:05)
--- NOTE | 2017-06-18 10:18 | PROVIDER PROGRESS NOTE ---
Subjective - Prog Note Date Prog Note Date: 06/18/17 Prog Note Time: 10:17 - Subjective Pt reports feeling: Improved Subjective: PO Day 5 s/p ileostomy closure. c/o persistent abdominal pain, generalized 5/10 and nausea with dry heaves, but somewhat improved compared to yesterday. Minimal oral intake; one small bm yesterday and small amount of mucus per rectum today; so significant flatus. Added promethazine to PONV regimen last night. Current Medications - Current Medications Current Medications: oxycodone, ibuprofen, acetaminophen oral, famotidine, metoclopramide, ondansetron, promethazine, D5NS with 20 KCL/l at 100cc/hr; Miralax. Objective - Vital Signs/Intake & Output Reviewed Vital Signs: Yes Vital Signs: Vital Signs x48h Temp Pulse Resp BP Pulse Ox 06/18/17 09:00 36.6 C 80 16 145/83 H 94 06/18/17 05:00 36.6 C 76 20 147/81 H 96 Intake & Output: Intake & Output 06/15/17 06/16/17 06/17/17 06/18/17 23:59 23:59 23:59 23:59 Intake Total 7878.561 4366.666 Balance 0893.559 4933.666 - Objective General Appearance: positive: Moderate distress, Lethargic Eyes Bilateral: positive: Normal inspection ENT: positive: Pharynx nml, No signs of dehydration Neck: positive: No JVD Respiratory: positive: No respiratory distress, Breath sounds nml, Other ( decreased in both bases) Cardiovascular: positive: Regular rate & rhythm, No murmur, No gallop Abdomen: positive: Abnml bowel sounds, Other (moderately distended, somewhat tympanitic bowel tones, mild diffuse tenderness without obvious peritoneal signs ; surgical wound draining serous fluid; digitally explored and fascia appears to be intact.) Back: positive: Nml inspection Skin: positive: Color nml, Warm, Diaphoresis Extremities: positive: Non-tender, Pedal edema (trace edema bilat). negative: Calf tenderness Neurologic/Psychiatric: positive: Oriented x3, Depressed mood/affect - Lab Results Fish Bones: 06/18/17 10:24 06/16/17 14:30 Assessment/Plan - Problem List (1) Ileus Impression: Post op ileus, possibly due to narcotics; electrolyte disturbance, anastomotic leak, bowel obstruction possible, but less likely; no evidence for acute abdomen at present. Plan abd films this morning; (small bowel series ordered yesterday not available till Tuesday (2 days)). d/c narcotics; NPO; PPI; VTE chemoprophylaxis; possible NG tube based on imaging. Recheck CBC, CMP and adjust IVF as necessary. (2) Postoperative pain Impression: will change to IV acetaminophen and ketorolac. d/c narcotics.
[2017-06-18 10:33] LABS: BASOPHILS % (AUTO) 0.5 %; EOSINOPHILS % (AUTO) 0.7 %; HCT - HEMATOCRIT 39.7 % (42.0-52.0); HGB - HEMOGLOBIN 13.5 g/dL (14.0-18.0); LYMPHOCYTES # (AUTO) 0.7 10^3/uL (1.5-3.5); LYMPHOCYTES % (AUTO) 14.1 %; MEAN CORPUSCULAR VOLUME 88.4 fL (80.0-94.0); MEAN PLATELET VOLUME 7.5 fL (7.4-11.4); MONOCYTES # (AUTO) 0.8 10^3/uL (0.0-1.0); MONOCYTES % (AUTO) 15.5 %; NEUTROPHILS # (AUTO) 3.7 10^3/uL (1.5-6.6); NEUTROPHILS % (AUTO) 69.2 %; NUCLEATED RED BLOOD CELLS AUTO 0.1 /100WBC; RED BLOOD COUNT 4.49 10^6/uL (4.70-6.10); RED CELL DISTRIBUTION WIDTH 14.4 % (12.0-15.0); UNCORRECTED WHITE BLOOD COUNT 5.3 x10^3/uL; WHITE BLOOD COUNT 5.3 x10^3/uL (4.8-10.8)
[2017-06-18 10:45] LABS: ALBUMIN/GLOBULIN RATIO 1.1 (1.0-2.2); BILIRUBIN,TOTAL 0.6 mg/dL (0.2-1.0); CALCIUM 8.4 mg/dL (8.5-10.3); CREATININE 0.7 mg/dL (0.6-1.2); POTASSIUM 3.6 mmol/L (3.5-5.0); TOTAL PROTEIN 6.2 g/dL (6.7-8.2)
[2017-06-18] MEDS ORDERED: LACTATED RINGERS 1,000 ML IV SCH (11:00)
[2017-06-18] MEDS: ACETAMINOPHEN 1,000 MG/100 ML 100 ML IV SCH ×3 (12:17→23:12)
[2017-06-18] MEDS: PANTOPRAZOLE 40 MG VIAL IVP SCH (12:50)
[2017-06-18] MEDS: KETOROLAC 30 MG/ML VIAL IVP SCH ×2 (12:51→17:04)
[2017-06-18] MEDS: ENOXAPARIN 40 MG/0.4 ML SYRINGE SUBQ SCH (12:52)
--- NOTE | 2017-06-18 13:06 | XRAY Preliminary Report ---
Exam: XR ABDOMEN ACUTE IMPRESSION: 1. Stable marked elevation of the left hemidiaphragm with adjacent atelectasis. 2. Air-filled, distended colon and nondilated small bowel loops with pattern similar to the recent pr ior CT exam. [facility] SITE ID: [id number]
--- NOTE | 2017-06-18 13:09 | XRAY Report ---
EXAM: ABDOMINAL SERIES AND PA CHEST EXAM DATE: 06/18/2017 11:32 AM. CLINICAL HISTORY: Abd pain, N/V 3 days s/p closure of ileostomy. COMPARISON: CT 06/16/2017. Chest radiograph 03/25/2017 TECHNIQUE: 2 views abdomen and 1 view chest. FINDINGS: CHEST: Lungs/Pleura: Marked elevation of the left hemidiaphragm with adjacent atelectasis, similar to prior. Mediastinum: The cardiac and mediastinal silhouettes appear to be stable. ABDOMEN: Bowel Gas Pattern: The colon is air-filled and distended, similar to prior. There are a few air-fille d nondistended small bowel loops. Free Air: None. Other: None. IMPRESSION: 1. Stable marked elevation of the left hemidiaphragm with adjacent atelectasis. 2. Air-filled, distended colon and nondilated small bowel loops with pattern similar to the recent pr ior CT exam. [facility] Referring Provider Line: [phone] SITE ID: [id number]
--- NOTE | 2017-06-18 14:06 | PROVIDER PROGRESS NOTE ---
Subjective - Prog Note Date Prog Note Date: 06/18/17 Prog Note Time: 14:04 - Subjective Pt reports feeling: Improved, No change Subjective: pt reports one additional small bm after returning from radiology; still uncomfortable, distended. Objective - Vital Signs/Intake & Output Vital Signs: Vital Signs x48h Temp Pulse Resp BP Pulse Ox 06/18/17 12:54 36.6 C 80 16 141/84 H 96 06/18/17 09:00 36.6 C 80 16 145/83 H 94 Intake & Output: Intake & Output 06/15/17 06/16/17 06/17/17 06/18/17 23:59 23:59 23:59 23:59 Intake Total 0303.310 6926.666 Balance 9354.153 7306.666 - Objective General Appearance: positive: Alert, Moderate distress Abdomen: positive: Other (unchanged from this am; digital rectal exam: no stool or masses; gentle 2 finger dilatation resulted in large amount of flatus and subsequent liquid bm plus additional flatus with marked improvement in symptoms of pain, nausea and distention) - Lab Results Fish Bones: 06/18/17 10:24 06/18/17 10:24 Other Labs: Lab Results x24hrs 06/18/17 06/18/17 Range/Units 10:24 10:24 WBC 5.3 (4.8-10.8) x10^3/uL RBC 4.49 L (4.70-6.10) 10^6/uL Hgb 13.5 L (14.0-18.0) g/dL Hct 39.7 L (42.0-52.0) % MCV 88.4 (80.0-94.0) fL MCH 30.0 (27.0-31.0) pg MCHC 34.0 (32.0-36.0) g/dL RDW 14.4 (12.0-15.0) % Plt Count 196 (130-450) 10^3/uL MPV 7.5 (7.4-11.4) fL Neut # 3.7 (1.5-6.6) 10^3/uL Lymph # 0.7 L (1.5-3.5) 10^3/uL [place] # 0.8 (0.0-1.0) 10^3/uL Eos # 0.0 (0.0-0.7) 10^3/uL Baso # 0.0 (0.0-0.1) 10^3/uL Absolute Nucleated RBC 0.00 x10^3/uL Nucleated RBC % 0.1 /100WBC Sodium 135 (135-145) mmol/L Potassium 3.6 (3.5-5.0) mmol/L Chloride 100 L (101-111) mmol/L Carbon Dioxide 27 (21-32) mmol/L Anion Gap 8.0 (6-13) BUN 10 (6-20) mg/dL Creatinine 0.7 (0.6-1.2) mg/dL Estimated GFR (MDRD) 118 (>89) Glucose 115 H (70-100) mg/dL Calcium 8.4 L (8.5-10.3) mg/dL Total Bilirubin 0.6 (0.2-1.0) mg/dL AST 21 (10-42) IU/L ALT 16 (10-60) IU/L Alkaline Phosphatase 46 (42-121) IU/L Total Protein 6.2 L (6.7-8.2) g/dL Albumin 3.2 (3.2-5.5) g/dL Globulin 3.0 (2.1-4.2) g/dL Albumin/Globulin Ratio 1.1 (1.0-2.2) - Diagnostic Imaging Diagnostic Imaging Results: positive: Read independently (3 view abd series shows diffuse colonic dilatation with a/f levels in colon cecal diameter of 10 cm, gas in rectum, nl small bowel pattern, no free air, all consistent with colonic pseudo obstruction.) Assessment/Plan - Problem List (1) Postoperative pain Impression: due to distention from pseudo obstruction, improving. (2) Acute pseudo-obstruction of colon Impression: improving with d/c narcotics, anal dilatation; plan continued observation; if condition worsens/recurs will try neostigmine, followed by decompressive colonoscopy if necessary. Pt comfortable with this plan.
[2017-06-18] MEDS ORDERED: NEOSTIGMINE 0.5 MG/1 ML 10 ML MDV IVP SCH (17:03)
[2017-06-18] MEDS ORDERED: ATROPINE ABBOJECT 1 MG/10 ML SYRINGE IVP ONE (17:27)
[2017-06-18] MEDS ORDERED: NEOSTIGMINE 1 MG/1 ML 10 ML MDV ONE (17:29)
--- NOTE | 2017-06-18 17:40 | PROVIDER PROGRESS NOTE ---
Subjective - Prog Note Date Prog Note Date: 06/18/17 Prog Note Time: 17:38 - Subjective Pt reports feeling: Worse Subjective: Pt developed recurrent distention and nausea after feeling better earlier today. Pain level /10. Passed another small bm but no more flatus. Objective - Vital Signs/Intake & Output Reviewed Vital Signs: Yes Vital Signs: Vital Signs Temp Pulse Resp BP Pulse Ox 06/18/17 17:19 37.1 C 80 24 156/93 H 97 06/18/17 15:59 36.6 C 74 20 147/87 H 97 Intake & Output: Intake & Output 06/15/17 06/16/17 06/17/17 06/18/17 23:59 23:59 23:59 23:59 Intake Total 1996.484 2416.666 Balance 0078.829 8669.666 - Objective General Appearance: positive: Alert, Moderate distress, Anxious Abdomen: positive: Other (more distended; minimal tenderness) - Lab Results Fish Bones: 06/18/17 10:24 06/18/17 10:24 Other Labs: Lab Results x24hrs 06/18/17 06/18/17 Range/Units 10:24 10:24 WBC 5.3 (4.8-10.8) x10^3/uL RBC 4.49 L (4.70-6.10) 10^6/uL Hgb 13.5 L (14.0-18.0) g/dL Hct 39.7 L (42.0-52.0) % MCV 88.4 (80.0-94.0) fL MCH 30.0 (27.0-31.0) pg MCHC 34.0 (32.0-36.0) g/dL RDW 14.4 (12.0-15.0) % Plt Count 196 (130-450) 10^3/uL MPV 7.5 (7.4-11.4) fL Neut # 3.7 (1.5-6.6) 10^3/uL Lymph # 0.7 L (1.5-3.5) 10^3/uL [place] # 0.8 (0.0-1.0) 10^3/uL Eos # 0.0 (0.0-0.7) 10^3/uL Baso # 0.0 (0.0-0.1) 10^3/uL Absolute Nucleated RBC 0.00 x10^3/uL Nucleated RBC % 0.1 /100WBC Sodium 135 (135-145) mmol/L Potassium 3.6 (3.5-5.0) mmol/L Chloride 100 L (101-111) mmol/L Carbon Dioxide 27 (21-32) mmol/L Anion Gap 8.0 (6-13) BUN 10 (6-20) mg/dL Creatinine 0.7 (0.6-1.2) mg/dL Estimated GFR (MDRD) 118 (>89) Glucose 115 H (70-100) mg/dL Calcium 8.4 L (8.5-10.3) mg/dL Total Bilirubin 0.6 (0.2-1.0) mg/dL AST 21 (10-42) IU/L ALT 16 (10-60) IU/L Alkaline Phosphatase 46 (42-121) IU/L Total Protein 6.2 L (6.7-8.2) g/dL Albumin 3.2 (3.2-5.5) g/dL Globulin 3.0 (2.1-4.2) g/dL Albumin/Globulin Ratio 1.1 (1.0-2.2) Assessment/Plan - Problem List (2) Acute pseudo-obstruction of colon Impression: No longer improving, appears more symptomatic; pt transferred to ICU and administered 2 mg of IV neostigmine with cardiac monitoring without hemodynamic changes so far; will continue to monitor and if not improved by morning, will recommend colonoscopic decrompression.
[2017-06-18] MEDS: LORazepam 2 MG/ML SYRINGE IVP PRN ×3 (17:55→23:46)
[2017-06-19] MEDS: KETOROLAC 30 MG/ML VIAL IVP SCH ×2 (01:27→05:48)
[2017-06-19] MEDS: D5NS W/20 MEQ KCL 1,000 ML IV SCH ×4 (01:29→14:02)
[2017-06-19] MEDS: SODIUM CHLORIDE FLUSH 0.9% 10 ML SYRINGE IVP SCH ×4 (01:31→23:42)
[2017-06-19] MEDS: LORazepam 2 MG/ML SYRINGE IVP PRN ×3 (02:58→19:35)
[2017-06-19 05:15] LABS: BASOPHILS % (AUTO) 0.3 %; EOSINOPHILS % (AUTO) 0.8 %; HGB - HEMOGLOBIN 13.4 g/dL (14.0-18.0); LYMPHOCYTES # (AUTO) 0.9 10^3/uL (1.5-3.5); LYMPHOCYTES % (AUTO) 18.3 %; MEAN CORPUSCULAR HEMOGLOBIN 29.9 pg (27.0-31.0); MEAN CORPUSCULAR HGB CONC 33.5 g/dL (32.0-36.0); MEAN CORPUSCULAR VOLUME 89.2 fL (80.0-94.0); MEAN PLATELET VOLUME 7.8 fL (7.4-11.4); MONOCYTES # (AUTO) 0.8 10^3/uL (0.0-1.0); MONOCYTES % (AUTO) 15.6 %; NEUTROPHILS # (AUTO) 3.2 10^3/uL (1.5-6.6); RED BLOOD COUNT 4.49 10^6/uL (4.70-6.10); RED CELL DISTRIBUTION WIDTH 14.1 % (12.0-15.0); UNCORRECTED WHITE BLOOD COUNT 4.9 x10^3/uL; WHITE BLOOD COUNT 4.9 x10^3/uL (4.8-10.8)
[2017-06-19 05:20] LABS: CALCIUM 8.2 mg/dL (8.5-10.3); CREATININE 0.6 mg/dL (0.6-1.2); POTASSIUM 3.5 mmol/L (3.5-5.0)
[2017-06-19] MEDS: ACETAMINOPHEN 1,000 MG/100 ML 100 ML IV SCH (05:37)
[2017-06-19] MEDS: PANTOPRAZOLE 40 MG VIAL IVP SCH (06:54)
[2017-06-19] MEDS ORDERED: SODIUM CHLORIDE FLUSH 0.9% 10 ML SYRINGE IVP ONE (06:57)
--- NOTE | 2017-06-19 10:00 | PROVIDER PROGRESS NOTE ---
Subjective - Prog Note Date Prog Note Date: 06/19/17 Prog Note Time: 09:57 - Subjective Pt reports feeling: Improved Subjective: Feels much better following administration of neostigmine last evening: no nausea, less abdominal distention, minimal abdominal discomfort now confined to incision, passing flatus and multiple loose stools, now hungry. Current Medications - Current Medications Current Medications: Active Medications Generic Name Dose Route Start Last Admin Trade Name Freq PRN Reason Stop Dose Admin Enoxaparin Sodium 40 mg 06/18/17 12:00 06/18/17 12:52 Lovenox SUBQ 40 mg DAILY VANDANA Administration Acetaminophen 100 mls @ 400 mls/hr 06/18/17 11:00 06/19/17 05:57 Ofirmev IV Infused Q6H VANDANA Infusion Potassium Chloride/Dextrose/Sod Cl 1,000 mls @ 75 mls/hr 06/19/17 10:00 IV .[id number] VANDANA Ketorolac Tromethamine 30 mg 06/18/17 12:00 06/19/17 05:48 Toradol Inj IVP 06/23/17 11:59 30 mg Q6HR VANDANA Administration Lorazepam 1 mg 06/18/17 17:47 06/19/17 05:35 Ativan Inj IVP 1 mg Q2HR PRN Administration Anxiety Ondansetron HCl 4 mg 06/16/17 16:00 06/18/17 16:05 Zofran Inj IVP 4 mg Q6HR PRN Administration Nausea / Vomiting Pantoprazole Sodium 40 mg 06/18/17 11:00 06/19/17 06:54 Protonix IVP 40 mg QDAC VANDANA Administration Polyethylene Glycol 17 gm 06/17/17 09:00 06/18/17 09:57 Miralax PO Not Given DAILY VANDANA Sodium Chloride 10 ml 06/16/17 16:00 06/18/17 17:55 Normal Saline Flush 0.9% IVP 10 ml PRN PRN Administration NEEDED PER PROVIDER ORDERS Sodium Chloride 10 ml 06/16/17 22:00 06/19/17 07:09 Normal Saline Flush 0.9% IVP Not Given Q8HR VANDANA Aspirin [Aspir 81] 81 mg PO DAILY 07/28/15 Latanoprost 0.005% Ophth Drops [Xalatan Ophth Drops] 1 drops EACHEYE QPM Lisinopril 20 mg PO DAILY 06/09/17 Timolol 0.5% Ophth Drops [Timoptic 0.5% Ophth Drops] 1 drops OPTH BID 06/14/17 Docusate Sodium [Dss] 250 mg PO DAILY PRN 06/16/17 Ondansetron HCl [Zofran] 4 mg PO Q6H PRN 06/16/17 oxyCODONE [Roxicodone] 5 mg PO Q4-6H 06/16/17 Objective - Vital Signs/Intake & Output Vital Signs: Vital Signs Temp Pulse Resp BP Pulse Ox 06/19/17 09:00 36.7 C 82 20 140/91 H 97 06/19/17 07:53 36.8 C 86 20 134/89 H 96 06/19/17 06:57 76 16 124/77 97 06/19/17 06:00 84 19 131/82 H 94 Intake & Output: Intake & Output 06/16/17 06/17/17 06/18/17 06/19/17 23:59 23:59 23:59 23:59 Intake Total 2138.002 8357.666 1040 Output Total 800 Balance 1917.279 6799.666 240 - Objective General Appearance: positive: No acute distress Eyes Bilateral: positive: Normal inspection ENT: positive: Pharynx nml, No signs of dehydration Neck: positive: No JVD Respiratory: positive: No respiratory distress Cardiovascular: positive: Other (NSR; no arrythmias with neostigmine administration yesterday evening or since.) Abdomen: positive: Non-tender, Other (mild distention, improved compared to yesterday; mild drainage from incision, serosanguinous, only tender around incision. NG output minimal since insertion last evenin cc/12+ hours.) Rectal: positive: Other (multiple liquid nonblood stools overnight). negative: Black stool, Bloody stool Skin: positive: Color nml, No rash, Warm, Dry. negative: Diaphoresis Extremities: negative: No pedal edema, Calf tenderness Neurologic/Psychiatric: positive: Oriented x3, Mood/affect nml - Lab Results Fish Bones: 06/19/17 04:56 06/19/17 04:56 Other Labs: Lab Results x24hrs 06/19/17 06/19/17 06/18/17 Range/Units 04:56 04:56 10:24 WBC 4.9 (4.8-10.8) x10^3/uL RBC 4.49 L (4.70-6.10) 10^6/uL Hgb 13.4 L (14.0-18.0) g/dL Hct 40.0 L (42.0-52.0) % MCV 89.2 (80.0-94.0) fL MCH 29.9 (27.0-31.0) pg MCHC 33.5 (32.0-36.0) g/dL RDW 14.1 (12.0-15.0) % Plt Count 219 (130-450) 10^3/uL MPV 7.8 (7.4-11.4) fL Neut # 3.2 (1.5-6.6) 10^3/uL Lymph # 0.9 L (1.5-3.5) 10^3/uL [place] # 0.8 (0.0-1.0) 10^3/uL Eos # 0.0 (0.0-0.7) 10^3/uL Baso # 0.0 (0.0-0.1) 10^3/uL Absolute Nucleated RBC 0.00 x10^3/uL Nucleated RBC % 0.0 /100WBC Sodium 136 135 (135-145) mmol/L Potassium 3.5 3.6 (3.5-5.0) mmol/L Chloride 103 100 L (101-111) mmol/L Carbon Dioxide 25 27 (21-32) mmol/L Anion Gap 8.0 8.0 (6-13) BUN 10 10 (6-20) mg/dL Creatinine 0.6 0.7 (0.6-1.2) mg/dL Estimated GFR (MDRD) 141 118 (>89) Glucose 114 H 115 H (70-100) mg/dL Calcium 8.2 L 8.4 L (8.5-10.3) mg/dL Total Bilirubin 0.6 (0.2-1.0) mg/dL AST 21 (10-42) IU/L ALT 16 (10-60) IU/L Alkaline Phosphatase 46 (42-121) IU/L Total Protein 6.2 L (6.7-8.2) g/dL Albumin 3.2 (3.2-5.5) g/dL Globulin 3.0 (2.1-4.2) g/dL Albumin/Globulin Ratio 1.1 (1.0-2.2) 06/18/17 Range/Units 10:24 WBC 5.3 (4.8-10.8) x10^3/uL RBC 4.49 L (4.70-6.10) 10^6/uL Hgb 13.5 L (14.0-18.0) g/dL Hct 39.7 L (42.0-52.0) % MCV 88.4 (80.0-94.0) fL MCH 30.0 (27.0-31.0) pg MCHC 34.0 (32.0-36.0) g/dL RDW 14.4 (12.0-15.0) % Plt Count 196 (130-450) 10^3/uL MPV 7.5 (7.4-11.4) fL Neut # 3.7 (1.5-6.6) 10^3/uL Lymph # 0.7 L (1.5-3.5) 10^3/uL [place] # 0.8 (0.0-1.0) 10^3/uL Eos # 0.0 (0.0-0.7) 10^3/uL Baso # 0.0 (0.0-0.1) 10^3/uL Absolute Nucleated RBC 0.00 x10^3/uL Nucleated RBC % 0.1 /100WBC Sodium (135-145) mmol/L Potassium (3.5-5.0) mmol/L Chloride (101-111) mmol/L Carbon Dioxide (21-32) mmol/L Anion Gap (6-13) BUN (6-20) mg/dL Creatinine (0.6-1.2) mg/dL Estimated GFR (MDRD) (>89) Glucose (70-100) mg/dL Calcium (8.5-10.3) mg/dL Total Bilirubin (0.2-1.0) mg/dL AST (10-42) IU/L ALT (10-60) IU/L Alkaline Phosphatase (42-121) IU/L Total Protein (6.7-8.2) g/dL Albumin (3.2-5.5) g/dL Globulin (2.1-4.2) g/dL Albumin/Globulin Ratio (1.0-2.2) - Diagnostic Imaging Diagnostic Imaging Results: positive: Read independently Diagnostic Imaging Comments: 2 view abd series shows improvement in pseudo obstruction with decreased caliber of cecum (8 cm, down from 10 cm yesterday); multiple colonic a/f levels ; small bowel pattern appears nl, no free air. Assessment/Plan - Problem List (1) Postoperative pain Impression: Improved with successful treatment of abdominal distention due to colonic pseudoobstruction. Will continue non narcotic analgesia and change to prn from scheduled dosages. (2) Acute pseudo-obstruction of colon Impression: Clinically and radiographically improving with resumption of large bowel function and decreasing caliber of cecum following administration of neostigmine. Plan: remove NG tube, increase activity, resume clear liquid diet, continue Miralax therapy; no narcotics; recheck labs and plain films of abd in am.
[2017-06-19] MEDS: POLYETHYLENE GLYCOL 3350 17 GM PACKET PO SCH (10:16)
[2017-06-19] MEDS: ENOXAPARIN 40 MG/0.4 ML SYRINGE SUBQ SCH (10:16)
[2017-06-19] MEDS ORDERED: KETOROLAC 30 MG/ML VIAL IVP PRN (10:18)
--- NOTE | 2017-06-19 12:21 | XRAY Preliminary Report ---
Exam: XR ABDOMEN 2 VIEW IMPRESSION: 1. Air and fluid-filled and distended colon once again seen. Air-fluid levels are seen in the colon. No small bowel dilation is seen to suggest obstruction. No free intraperitoneal air. 2. Prominent elevation of left hemidiaphragm once again seen. Exam otherwise as above. [facility] SITE ID: [id number]
--- NOTE | 2017-06-19 12:24 | XRAY Report ---
EXAM: ABDOMEN RADIOGRAPHY EXAM DATE: 06/19/2017 09:09 AM. CLINICAL HISTORY: F/u colonic pseudo obstruction. COMPARISON: 06/18/2017. TECHNIQUE: 3 films, 2 views. FINDINGS: Lung Bases: Elevation of left hemidiaphragm above the level of hilum once again seen. Associated subs egmental atelectasis at left lung base. Bowel Gas Pattern: Air-filled and mildly distended colon once again seen. Small bowel nondistended. Free Air: None. Other: NG tube tip is in the stomach. IMPRESSION: 1. Air and fluid-filled and distended colon once again seen. Air-fluid levels are seen in the colon. No small bowel dilation is seen to suggest obstruction. No free intraperitoneal air. 2. Prominent elevation of left hemidiaphragm once again seen. Exam otherwise as above. [facility] Referring Provider Line: [phone] SITE ID: [id number]
[2017-06-19] MEDS: SODIUM CHLORIDE FLUSH 0.9% 10 ML SYRINGE IVP PRN ×2 (14:03→19:35)
[2017-06-19] MEDS: ACETAMINOPHEN 1,000 MG/100 ML 100 ML IV PRN (16:37)
[2017-06-20] MEDS: D5NS W/20 MEQ KCL 1,000 ML IV SCH (03:51)
[2017-06-20] MEDS: LORazepam 2 MG/ML SYRINGE IVP PRN (05:07)
[2017-06-20 05:39] LABS: CALCIUM 8.3 mg/dL (8.5-10.3); CREATININE 0.7 mg/dL (0.6-1.2); POTASSIUM 3.1 mmol/L (3.5-5.0)
[2017-06-20] MEDS: SODIUM CHLORIDE FLUSH 0.9% 10 ML SYRINGE IVP SCH ×3 (06:19→21:14)
[2017-06-20] MEDS: PANTOPRAZOLE 40 MG VIAL IVP SCH (06:19)
--- NOTE | 2017-06-20 07:25 | XRAY Preliminary Report ---
Exam: XR ABDOMEN 2 VIEW IMPRESSION: 1. Mild improvement. Findings compatible with adynamic ileus or Pool's syndrome. 2. Similar elevated left hemidiaphragm. [facility] SITE ID: [id number]
--- NOTE | 2017-06-20 07:27 | XRAY Report ---
EXAM: ABDOMEN RADIOGRAPHY EXAM DATE: 06/20/2017 06:53 AM. CLINICAL HISTORY: F/u colonic pseudo obstruction syndrome. COMPARISON: 06/19/2017. TECHNIQUE: Supine and upright, 2 views. FINDINGS: Lung Bases: Similar elevated left hemidiaphragm. Bowel Gas Pattern: Mildly decreased gaseous colonic distention and air-fluid levels. No dilated small bowel identified. Free Air: None. Other: Removal of enteric tube. IMPRESSION: 1. Mild improvement. Findings compatible with adynamic ileus or [place]'s syndrome. 2. Similar elevated left hemidiaphragm. [facility] Referring Provider Line: [phone] SITE ID: [id number]
--- NOTE | 2017-06-20 08:50 | PROVIDER PROGRESS NOTE ---
Subjective - Prog Note Date Prog Note Date: 06/20/17 Prog Note Time: 08:48 - Subjective Pt reports feeling: Improved Subjective: Feeling much better. No N/V; multiple liquid bms and flatus overnight; minimal incisional discomfort. Requests regular diet. Current Medications - Current Medications Current Medications: Active Medications Generic Name Dose Route Start Last Admin Trade Name Freq PRN Reason Stop Dose Admin Enoxaparin Sodium 40 mg 06/18/17 12:00 06/19/17 10:16 Lovenox SUBQ 40 mg DAILY VANDANA Administration Acetaminophen 100 mls @ 400 mls/hr 06/19/17 10:15 06/19/17 17:13 Ofirmev IV Infused Q6HR PRN Infusion PAIN Ondansetron HCl 4 mg 06/16/17 16:00 06/18/17 16:05 Zofran Inj IVP 4 mg Q6HR PRN Administration Nausea / Vomiting Potassium Chloride 20 meq 06/20/17 09:00 K-Dur PO TID VANDANA Sodium Chloride 10 ml 06/16/17 16:00 06/19/17 19:35 Normal Saline Flush 0.9% IVP 10 ml PRN PRN Administration NEEDED PER PROVIDER ORDERS Sodium Chloride 10 ml 06/16/17 22:00 06/20/17 06:19 Normal Saline Flush 0.9% IVP 10 ml Q8HR VANDANA Administration Aspirin [Aspir 81] 81 mg PO DAILY 07/28/15 Latanoprost 0.005% Ophth Drops [Xalatan Ophth Drops] 1 drops EACHEYE QPM Lisinopril 20 mg PO DAILY 06/09/17 Timolol 0.5% Ophth Drops [Timoptic 0.5% Ophth Drops] 1 drops OPTH BID 06/14/17 Docusate Sodium [Dss] 250 mg PO DAILY PRN 06/16/17 Ondansetron HCl [Zofran] 4 mg PO Q6H PRN 06/16/17 oxyCODONE [Roxicodone] 5 mg PO Q4-6H 06/16/17 Objective - Vital Signs/Intake & Output Reviewed Vital Signs: Yes Vital Signs: Vital Signs Temp Pulse Resp BP 06/20/17 08:16 37.0 C 88 14 145/89 H 06/20/17 06:11 78 16 142/89 H Intake & Output: Intake & Output 06/17/17 06/18/17 06/19/17 06/20/17 23:59 23:59 23:59 23:59 Intake Total 1361.946 8171.666 3331.25 1526.25 Output Total 1575 Balance 8107.226 1770.666 1756.25 1526.25 - Objective General Appearance: positive: No acute distress, Alert Eyes Bilateral: positive: Normal inspection Neck: positive: No JVD Respiratory: positive: No respiratory distress Cardiovascular: positive: Regular rate & rhythm Abdomen: positive: Non-tender, Other (much less distended, soft, minimal tenderness around incision; minimal drainage into dressing; wound healing well per rn with dressing change yesterday) Skin: positive: Color nml, Warm, Dry Extremities: positive: No pedal edema. negative: Calf tenderness Neurologic/Psychiatric: positive: Oriented x3, Mood/affect nml - Lab Results Fish Bones: 06/19/17 04:56 06/20/17 04:58 Other Labs: Lab Results x24hrs 06/20/17 Range/Units 04:58 Sodium 136 (135-145) mmol/L Potassium 3.1 L (3.5-5.0) mmol/L Chloride 102 (101-111) mmol/L Carbon Dioxide 26 (21-32) mmol/L Anion Gap 8.0 (6-13) BUN 8 (6-20) mg/dL Creatinine 0.7 (0.6-1.2) mg/dL Estimated GFR (MDRD) 118 (>89) Glucose 105 H (70-100) mg/dL Calcium 8.3 L (8.5-10.3) mg/dL - Diagnostic Imaging Diagnostic Imaging Results: positive: Final report reviewed, Read independently (decreased caliber of large bowel in cecum, persistent gas throughout colon with a/f levels; no small bowel abnormalities; findings c/w resolving colonic pseudo obstruction) Assessment/Plan - Problem List (1) Acute pseudo-obstruction of colon Impression: Improved; plan regular diet, transfer to med/surg, d/c laxatives, home tomorrow if continues to improve. (2) Encounter for postoperative wound care Impression: open wound healing well with hydrogel dressing; plan continue same as outpatient until healed. (3) Hypokalemia due to loss of potassium Impression: likely due to diarrhea; will d/c Miralax and supplement potassium orally. (4) Postoperative pain Impression: resolving, no longer requiring analgesics.
[2017-06-20] MEDS: POTASSIUM CHLORIDE 20 MEQ TABLET PO SCH ×3 (09:17→21:14)
[2017-06-20] MEDS: ENOXAPARIN 40 MG/0.4 ML SYRINGE SUBQ SCH (09:21)
[2017-06-20] MEDS: SODIUM CHLORIDE FLUSH 0.9% 10 ML SYRINGE IVP PRN ×2 (09:24→14:37)
[2017-06-20] MEDS: ACETAMINOPHEN 1,000 MG/100 ML 100 ML IV PRN ×2 (14:36→21:13)
[2017-06-21] MEDS: ACETAMINOPHEN 1,000 MG/100 ML 100 ML IV PRN (03:07)
[2017-06-21] MEDS: SODIUM CHLORIDE FLUSH 0.9% 10 ML SYRINGE IVP SCH (03:08)
[2017-06-21] MEDS: POTASSIUM CHLORIDE 20 MEQ TABLET PO SCH (05:41)
[2017-06-21 06:18] LABS: CALCIUM 8.7 mg/dL (8.5-10.3); CREATININE 0.7 mg/dL (0.6-1.2); POTASSIUM 3.1 mmol/L (3.5-5.0)
--- NOTE | 2017-06-21 09:26 | PROVIDER PROGRESS NOTE ---
Subjective - General Admit Date: 06/17/17 Procedure Date: 06/13/17 Post Op Days: 8 Procedure Performed: ileostomy closure - Review of Systems Wound/Incisions: positive: Dressing dry and intact, No drainage. negative: Drainage, Erythema General: positive: No symptoms HEENT: positive: No symptoms Pulmonary: positive: No symptoms Cardiovascular: positive: No symptoms Gastrointestinal: positive: Flatus, Diarrhea (pt continues to have multiple liquid stools, but non bloody and becoming a little more formed now). negative : Nausea, Vomiting, Difficulty swallowing, Abdominal pain, Constipation, Melena , Hematochezia Genitourinary: positive: No symptoms Musculoskeletal: positive: No symptoms Skin: positive: No symptoms Psychiatric: positive: No symptoms - Other Other Information/Narrative: Feels well and wants to go home. Objective - Patient Data Reviewed Vital Signs: Yes Vital Signs: Vital Signs x48h Temp Pulse Resp BP Pulse Ox 06/21/17 08:15 36.3 C L 73 20 148/73 H 97 06/21/17 05:00 36.5 C 81 16 135/75 H 98 Intake & Output: Intake and Output Totals x24h 06/19/17 06/20/17 06/21/17 23:59 23:59 23:59 Intake Total 3331.25 4050.00 340 Output Total 1575 Balance 1756.25 4050.00 340 - Lab Results Lab Results: 06/19/17 04:56 06/21/17 05:50 Other Lab Results: Lab Results x24hrs 06/21/17 Range/Units 05:50 Sodium 140 (135-145) mmol/L Potassium 3.1 L (3.5-5.0) mmol/L Chloride 100 L (101-111) mmol/L Carbon Dioxide 32 (21-32) mmol/L Anion Gap 8.0 (6-13) BUN 9 (6-20) mg/dL Creatinine 0.7 (0.6-1.2) mg/dL Estimated GFR (MDRD) 118 (>89) Glucose 102 H (70-100) mg/dL Calcium 8.7 (8.5-10.3) mg/dL - Current Medications Current Medications: Current Medications Generic Name Dose Route Start Last Admin Trade Name Freq PRN Reason Stop Dose Admin Enoxaparin Sodium 40 mg 06/18/17 12:00 06/20/17 09:21 Lovenox SUBQ 40 mg DAILY VANDANA Administration Acetaminophen 100 mls @ 400 mls/hr 06/19/17 10:15 06/21/17 04:03 Ofirmev IV Infused Q6HR PRN Infusion PAIN Ondansetron HCl 4 mg 06/16/17 16:00 06/18/17 16:05 Zofran Inj IVP 4 mg Q6HR PRN Administration Nausea / Vomiting Potassium Chloride 20 meq 06/20/17 09:00 06/21/17 05:41 K-Dur PO 20 meq TID VANDANA Administration Sodium Chloride 10 ml 06/16/17 16:00 06/20/17 14:37 Normal Saline Flush 0.9% IVP 10 ml PRN PRN Administration NEEDED PER PROVIDER ORDERS Sodium Chloride 10 ml 06/16/17 22:00 06/21/17 03:08 Normal Saline Flush 0.9% IVP 10 ml Q8HR VANDANA Administration - Physical Exam Wound/Incisions: positive: Dressing dry and intact, No drainage. negative: Erythema General Appearance: positive: No acute distress, Alert Eyes Bilateral: positive: No scleral icterus Neck: positive: No JVD Respiratory: positive: No respiratory distress Abdomen: positive: Non-tender, No distention, Tenderness (minimal incisional). negative: Guarding, Rebound, Hepatomegaly, Splenomegaly, Mass Rectal: negative: Bloody stool Extremities: positive: Nml appearance, No pedal edema. negative: Pedal edema, Calf tenderness Comments/Other: Tolerating a regular diet, ambulating, voiding well, using only acetaminophen for incisional discomfort, requests discharge home. Impression/Plan - Problem List Problem List: 1. Colonic pseudo obstruction syndrome-resolved; plan avoid narcotics when possible indefinitely. 2. Post-op pain, now well controlled with non narcotic analgesia. 3. hypokalemia, due to diarrhea; will need potassium supplementation until diarrhea has resolved. 4. diarrhea, likely due to laxatives and resolving pseudo obstruction syndrome, should resolve with time; rec low fiber and lactose free diet until resolved. 5. wound care- TIW hydrogel dressing changes until healed; will continue in office following discharge. 6. Discharge planning: discharge home today with f/u in surgery clinic tomorrow and TIW for dressing changes.
--- NOTE | 2017-06-21 09:44 | Discharge Plan ---
Discharge Plan Disposition: 01 Home, Self Care Condition: Good Prescriptions: Potassium Chloride [K-Dur] 20 meq PO TID 7 Days #21 tablet Diet: Regular (low fiber and lactose free until diarrhea resolves, then liberalize as tolerated) Activity Restrictions: ambulate daily, no lifing more than 10 lbs, no sports or strenuous physical activities Shower Restrictions: No (do not immerse dressing under water; ok to shower) Driving Restrictions: Yes (as tolerated) Weight Bearing: Full Weight Instruction Topics: Bowel Surg Recovery, Diarrhea Follow-Up Care: [facility] – [place] Clinic - Wound/Ostomy (tomorrow for dressing change) No Smoking: If you smoke, Please STOP! Call for help. Follow-up with: NADER WALL MD [Provider Admit Priv/Credential] -
--- NOTE | 2017-06-21 10:02 | DISCHARGE SUMMARY ---
"Discharge Summary Admit Date: 06/17/17 Discharge Date: 06/21/17 Discharging Provider: Dr. Stan Johnson Primary Care Provider: Dr. Lissy Patten Code Status: Attempt Resuscitation Condition at Discharge: Good Discharge Disposition: 01 Home, Self Care - DIAGNOSES Admission Diagnoses: Postop nausea, vomiting, pain, constipation. Discharge Diagnoses with Status of Each Condition: 1. Colonic pseudo obstruction, resolved. 2. postop N/V/constipation,pain, resolved. 3. diarrhea, resolving. 4. hypokalemia, resolving. - HPI History of Present Illness: See admission H & P. - HOSPITAL COURSE Hospital Course: Pt developed progressively worsening abdominal distention following admission and medical management of sx of postop N/V and pain. Imaging revealed evidence of colonic pseudo obstruction syndrome. His narcotics were discontinued without significant improvement. Administration of neostigmine with cardiac monitoring in the ICU resulted in resolution of his symptoms over the next 24 hours. His diet was advanced to regular gradually, and he was noted to have nonbloody diarrhea thought due to laxatives and resolution of the pseudo obstruction. His laxatives were stopped, potassium supplementation was started for associated hypokalemia, and diet was changed to low fiber, lactose free at discharge. His surgical wound began draining serosanguinous fluid on admission. The wound was explored at bedside, where the fascia was seen to be intact, with no evidence of infection, and hydrogel dressings were begun, with satisfactory healing at the time of discharge. - ALLERGIES Allergies/Adverse Reactions: Allergies Allergy/AdvReac Type Severity Reaction Status Date / Time No Known Drug Allergies Allergy Verified 06/16/17 13:48 - MEDICATIONS Home Medications: Ambulatory Orders Medication Instructions Recorded Confirmed Aspirin [Aspir 81] 81 mg PO DAILY 07/28/15 06/16/17 Latanoprost 0.005% Ophth Drops 1 drops EACHEYE QPM 06/09/17 06/16/17 [Xalatan Ophth Drops] Lisinopril 20 mg PO DAILY 06/09/17 06/16/17 Timolol 0.5% Ophth Drops [Timoptic 1 drops OPTH BID 06/14/17 06/16/17 0.5% Ophth Drops] Potassium Chloride [K-Dur] 20 meq PO TID 7 Days #21 tablet 06/21/17 Home Medications Other | Comments: He will use OTC acetaminophen and/or naproxen as needed for discomfort. - PHYSICAL EXAM AT DISCHARGE General Appearance: positive: No acute distress, Alert Eyes Bilateral: positive: No scleral icterus ENT: positive: No signs of dehydration Neck: positive: No JVD Respiratory: positive: No respiratory distress Abdomen: positive: No distention, Tenderness (minimal incisional tenderness). negative: No organomegaly, Guarding, Rebound, Hepatomegaly, Splenomegaly, Mass Rectal: negative: Bloody stool Skin: positive: Color nml Extremities: positive: No pedal edema. negative: Calf tenderness Neurologic/Psychiatric: positive: Oriented x3 Physical Exam Other/Comments: surgical wound has aquacel dressing covered with Mepilex cover dressing and appears to be healing well. Last changed on 06/19/17. - LABS Result Diagrams: 06/19/17 04:56 06/21/17 05:50 - FOLLOW UP Follow Up: 1. tomorrow in surgical/wound clinic for dressing change. 2. next week with Dr. Patten. - TIME SPENT Time Spent in Discharge (Minutes): 60"
[2017-06-21] MEDS: ENOXAPARIN 40 MG/0.4 ML SYRINGE SUBQ SCH (10:10)
[2017-06-21 10:27] VITALS: BP 145/71
== END 2017-06-21 10:37 | disposition home or self-care (01) | DRG 392 ==
LOC: ED 13:41 → OBS 16:00 → OBSVTOIN 06-17 15:25 → MS2 06-17 16:02 → ICU 06-18 17:09 → MS3 06-20 11:32
PROVIDERS: ADMIT Surgery; ATTEND Internal Medicine Gastroenterology
PROC: 0D7Q7ZZ Dilation of Anus, Via Natural or Artificial Opening (ICD-10-PCS; principal; 2017-06-18)
DX: K59.8 Other specified functional intestinal disorders (principal); K52.1 Toxic gastroenteritis and colitis; E86.0 Dehydration; K59.00 Constipation, unspecified; K91.0 Vomiting following gastrointestinal surgery; G89.18 Other acute postprocedural pain; E87.6 Hypokalemia; T47.4X5A Adverse effect of other laxatives, initial encounter; Y92.239 Unspecified place in hospital as the place of occurrence of the external cause; I10 Essential (primary) hypertension; F64.9 Gender identity disorder, unspecified; Z90.710 Acquired absence of both cervix and uterus; Z79.82 Long term (current) use of aspirin; Z87.891 Personal history of nicotine dependence
CPT/HCPCS: 36415; 74020; 74022; 74177; 80048; 80053; 81001; 81003; 83690; 85025; 87086; 87150; 96361; 96365; 96367; 96372; 96375; 96376; 99284; 99285